=== PATIENT | female | born 1935 | race Caucasian/White ===

== ENCOUNTER 2018-12-11 07:56 | Emergency (ER) | payer OTHER ==
[~2018-12-11] VITALS: Ht 160 cm; Wt 83.5 kg
[2018-12-11] MEDS ORDERED: cloNIDine HCL 0.1 MG TAB ONE (08:09)
[2018-12-11] MEDS ORDERED: cloNIDine HCL 0.1 MG TAB PO ONE (08:15)
[2018-12-11 08:23] LABS: Basophils # (auto) 0 uL; Basophils % (auto) 0.5 % (0.0-2.0); Eosinophils # (auto) 0 uL; Eosinophils % (auto) 0.6 % (0.0-7.0); Hematocrit 43.9 % (36.0-46.0); Hemoglobin 14.7 g/dL (12.2-16.2); Lymphocytes # (auto) 1.3 uL; Lymphocytes % (auto) 18.3 % (10.0-50.0); Mean Corpuscular Hemoglobin 29.8 pg (28.0-32.0); Mean Corpuscular Hgb Conc. 33.4 g/dL (32.0-36.0); Mean Corpuscular Volume 89.3 fL (80.0-100.0); Monocytes # (auto) 0.5 uL; Monocytes % (auto) 6.6 % (0.0-12.0); Neutrophils # (auto) 5.4 uL; Platelet Count (auto) 193 10^3/uL (140-450); Red Blood Cells 4.91 10^6/uL (4.0-5.20); Red Cell Distribution Width 15.2 % (11.8-14.3); White Blood Cell 7.3 10^3/uL (4.4-10.8)
[2018-12-11 08:43] LABS: Anion Gap 7 (5-15); BUN/Creatinine Ratio 20.9; Blood Urea Nitrogen 14 mg/dL (7-18); Calcium 9.2 mg/dL (8.5-10.1); Carbon Dioxide 28 mmol/L (21-32); Chloride 104 mmol/L (98-107); GFR African American 109 mL/min; GFR Non-African American 90 mL/min; Glucose 99 mg/dL (74-106); Potassium 3.7 mmol/L (3.5-5.1); Sodium 139 mmol/L (136-145)
[2018-12-11 08:49] LABS: Alanine Aminotransferase 18 U/L (13-56); Alkaline Phosphatase 105 U/L (45-117); Aspartate Aminotransferase 15 U/L (15-37); Bilirubin, Total 0.6 mg/dL (0.2-1.0); Total Protein 7.3 g/dL (6.4-8.2)
[2018-12-11 10:13] LABS: Urine Bacteria MOD /hpf (None Seen); Urine Blood TRACE /uL (Negative); Urine Hyaline Cast FEW /lpf (0 - 2); Urine Mucus FEW (None Seen); Urine Specific Gravity 1.015 (1.001-1.035); Urine WBC 40 /hpf (0 - 5)
[2018-12-11 11:11] VITALS: BP 100/75
== END 2018-12-11 11:16 | disposition home or self-care (01) ==
LOC: ER 07:56
DX: I10 Essential (primary) hypertension (principal); N39.0 Urinary tract infection, site not specified; Z90.710 Acquired absence of both cervix and uterus
CPT/HCPCS: 36415; 80053; 81001; 83880; 84484; 85025; 93005

== ENCOUNTER 2024-03-30 17:32 | Inpatient (IN) | payer OTHER ==
[~2024-03-30] VITALS: Ht 154.9 cm; Wt 83.3 kg
[2024-03-30 18:20] LABS: Basophils # (auto) 0.1 10 ^3/uL (0-0.2); Basophils % (auto) 0.9 % (0.0-2.0); Eosinophils # (auto) 0.2 10 ^3/uL (0-0.8); Eosinophils % (auto) 1.4 % (0.0-7.0); Hematocrit 45.8 % (36.0-46.0); Hemoglobin 15.5 g/dL (12.2-16.2); Lymphocytes # (auto) 1.6 10 ^3/uL (0.4-5.4); Lymphocytes % (auto) 13.9 % (10.0-50.0); Mean Corpuscular Hemoglobin 28.4 pg (28.0-32.0); Mean Corpuscular Hgb Conc. 33.8 g/dL (32.0-36.0); Monocytes # (auto) 0.8 10 ^3/uL (0-1.3); Monocytes % (auto) 7.1 % (0.0-12.0); Neutrophils # (auto) 9.1 10 ^3/uL (1.6-8.6); Neutrophils % (auto) 76.7 % (37.0-80.0); Platelet Count (auto) 298 10^3/uL (140-450); Red Blood Cells 5.45 10^6/uL (4.0-5.20); Red Cell Distribution Width 15.7 % (11.8-14.3); White Blood Cell 11.8 10^3/uL (4.4-10.8)
[2024-03-30 18:34] LABS: Anion Gap 11 (5-15); Calcium 10.2 mg/dL (8.7-10.4)
[2024-03-30 18:39] LABS: BUN/Creatinine Ratio 19.6 (10.0-20.0); Blood Urea Nitrogen 18 mg/dL (9-23)
[2024-03-30 19:30] LABS: Carbon Dioxide 35 mmol/L (20-31); Chloride 90 mmol/L (98-107); Glucose 120 mg/dL (74-106); Sodium 136 mmol/L (136-145)
[2024-03-30 19:32] LABS: Potassium 2.4 mmol/L (3.5-5.1)
--- NOTE | 2024-03-30 20:40 | ED.PDOC ---
History of Present Illness HPI Comments 89 y.o female presents to the ED via EMS for an evaluation of abnormal labs. Patient reports recent lab drawn, states PCP called her to come into the ED due to potassium level measuring 2.3. Patient is asymptomatic at this time. Patient is also a poor historian, does not know her medical history, medications he takes or known allergies. She denies any nausea, vomiting, diarrhea, chest pain, shortness for breath or weakness. Chief Complaint: Abnormal LAB's Time Seen by MD: 20:18 Primary Care Provider: JESSIE Reviewed Notes: Nurses Notes, Health Education Assistant Notes, Medications, Allergies Allergies: Coded Allergies: NO KNOWN ALLERGIES (Unverified , 12/11/18) Information Source: Patient Mode of Arrival: EMS Severity: None Timing: Hours Duration: Since onset Past Medical History PAST MEDICAL HISTORY: HTN Surgical History: Hysterectomy, Tonsillectomy GENERAL SUPERVISOR History: No Pertinent GENERAL SUPERVISOR History Family History Family History: Family hx of heart bryon Social History Smoker: Non-Smoker Alcohol: Denies ETOH Use Drugs: Denies Drug Use Lives In: Home Constitutional: denies: chills, diaphoresis, fatigue, fever, malaise, sweats, weakness, others EENTM: denies: blurred vision, double vision, ear bleeding, ear discharge, ear drainage, ear pain, ear ringing, eye pain, eye redness, hearing loss, mouth pain, mouth swelling, nasal discharge, nose bleeding, nose congestion, nose pain, photophobia, tearing, throat pain, throat swelling, voice changes, others Respiratory: denies: cough, hemoptysis, orthopnea, SOB at rest, shortness of breath, SOB with excertion, stridor, wheezing, others Cardiovascular: denies: chest pain, dizzy spells, diaphoresis, Dyspnea on exertion, edema, irregular heart beat, left arm pain, lightheadedness, palpitations, PND, syncope, others Gastrointestinal: denies: abdomen distended, abdominal pain, blood streaked bowels, constipated, diarrhea, dysphagia, difficulty swallowing, hematemesis, melena, nausea, poor appetite, poor fluid intake, rectal bleeding, rectal pain, vomiting, others Genitourinary: denies: abnormal vagina bleeding, burning, dyspareunia, dysuria, flank pain, frequency, hematuria, incontinence, pain, , vagina discharge, urgency, others Neurological: denies: dizziness, fainting, headache, left sided numbness, left sided weakness, numbness, paresthesia, pre-existing deficit, right sided numbness, right sided weakness, seizure, speech problems, tingling, tremors, weakness, others Musculoskeletal: denies: back pain, gout, joint pain, joint swelling, muscle pain, muscle stiffness, neck pain, others Integumetry: denies: bruises, change in color, change in hair/nails, dryness, laceration, lesions, lumps, rash, wounds, others Allergic/Immunocompromised: denies: Difficulty Healing, Frequent Infections, Hives, Itching, others Hematologic/Lymphatic: denies: anemia, blood clots, easy bleeding, easy bruising, swollen glands, others Endocrine: denies: excessive hunger, excessive sweating, excessive thirst, excessive urination, flushing, intolerance to cold, intolerance to heat, unexplained weight gain, unexplained weight loss, others Psychiatric: denies: anxiety, bipolar disorder, depression, hopeless, panic disorder, schizophrenia, sleepless, suicidal, others All Other Systems: Reviewed and Negative Physical Exam General Appearance: No Apparent Distress HEENT: Other (Pulses symmetric, no facial asymmetry, moist mucous membranes) Neck: Full Range of Motion, Normal Inspection Respiratory: Lungs Clear, No Accessory Muscle Use, No Respiratory Distress, Normal Breath Sounds Cardiovascular: No Edema, No JVD, Regular Rate/Rhythm Breast Exam: Deferred Gastrointestinal: Non Tender, Soft Genitalia: Deferred Pelvic: Deferred Rectal: Deferred Extremities: Normal inspection, Normal range of motion, Non-tender, No pedal edema Neurologic: Alert (Oriented x3), Normal Affect, Normal Mood, Other (Moves all extremities. No gross focal deficit.) Cerebellar Function: NOT DONE Reflexes: NOT DONE Skin: Dry, Normal Color, Warm Lymphatic: NOT DONE Was a procedure done? Was a procedure done?: No EKG EKG : Comments Sinus rhythm, rate 80, normal intervals, left axis deviation, LVH, left anterior fascicular block, nonspecific T changes. Differential Dx Considerations may include: Electrolyte imbalance, renal disease, arrhythmia, among others X-Ray, Labs, Meds, VS Vital Signs Date Time Temp Pulse Resp B/P (MAP) Pulse Ox O2 Delivery O2 Flow Rate FiO2 03/30/24 17:40 80 03/30/24 17:32 97.9 90 24 121/77 (92) 95 Lab Test 03/30/24 21:11 03/30/24 19:22 03/30/24 18:09 Range/Units Troponin I High Sensitivity Pending 89 *H 86 *H </=34 ng/L White Blood Count 11.8 H 4.4-10.8 10^3/uL Red Blood Count 5.45 H 4.0-5.20 10^6/uL Hemoglobin 15.5 12.2-16.2 g/dL Hematocrit 45.8 36.0-46.0 % Mean Corpuscular Volume 84.0 80.0-100.0 fL Mean Corpuscular Hemoglobin 28.4 28.0-32.0 pg Mean Corpuscular Hemoglobin Concent 33.8 32.0-36.0 g/dL Red Cell Distribution Width 15.7 H 11.8-14.3 % Platelet Count 298 140-450 10^3/uL Mean Platelet Volume 8.4 6.9-10.8 fL Neutrophils (%) (Auto) 76.7 37.0-80.0 % Lymphocytes (%) (Auto) 13.9 10.0-50.0 % Monocytes (%) (Auto) 7.1 0.0-12.0 % Eosinophils (%) (Auto) 1.4 0.0-7.0 % Basophils (%) (Auto) 0.9 0.0-2.0 % Neutrophils # (Auto) 9.1 H 1.6-8.6 10 ^3/uL Lymphocytes # (Auto) 1.6 0.4-5.4 10 ^3/uL Monocytes # (Auto) 0.8 0-1.3 10 ^3/uL Eosinophils # (Auto) 0.2 0-0.8 10 ^3/uL Basophils # (Auto) 0.1 0-0.2 10 ^3/uL Nucleated Red Blood Cells 0.0 % Sodium Level 136 136-145 mmol/L Potassium Level 2.4 *L 3.5-5.1 mmol/L Chloride Level 90 L 98-107 mmol/L Carbon Dioxide Level 35 H 20-31 mmol/L Anion Gap 11 5-15 Blood Urea Nitrogen 18 9-23 mg/dL Creatinine 0.92 0.550-1.02 mg/dL Glomerular Filtration Rate Calc 60 >90 mL/min BUN/Creatinine Ratio 19.6 10.0-20.0 Serum Glucose 120 H 74-106 mg/dL Calcium Level 10.2 8.7-10.4 mg/dL [facility] [id number] [place] [address] Ph: [phone] DIAGNOSTIC IMAGING Diagnostic Imaging Report : [id number] Signed PATIENT: SARAY MARTÍNEZIAACCT: [id number] UNIT: [id number] : 1935 LOC: ER ROOM / BED: / AGE / SEX: 89 / F ADM STATUS: REG ER SERVICE 49 ORDERING PHYSICIAN: PALOMA COMBS MD PROCEDURE(s): CXR1 - CHEST XRAY 1 VIEW REASON: elevated troponin ORDER NUMBER(s): [id number], ACCESSION NUMBER(s): [id number] CHEST RADIOGRAPH Indication: elevated troponin Technique: Single frontal view of the chest was obtained COMPARISON: None FINDINGS: Lines and Tubes: None Lungs: Clear. Pleura: No effusion. No pneumothorax. Cardiomediastinal contours: Unremarkable IMPRESSION: No abnormality demonstrated. ATED BY: ERVIN ROSE MD DICTATED DATE/TIME: 03/30/242123 SIGNED BY: ERVIN ROSE MD SIGNED DATE/TIME: 03/30/242123 CC: X-Ray, Labs, Meds, VS Comment 89-year-old female with history of hypertension referred by primary physician for hypokalemia Vitals remarkable for respiratory rate 24 Exam unremarkable Rhythm strip independently interpreted by me: Sinus rhythm, rate 80, no ectopy. EKGs sinus rhythm, nonspecific T changes Chest x-ray unremarkable CBC remarkable for WBC 11.8, metabolic panel remarkable for potassium 2.4, chloride 90, CO2 is 35, glucose 120 Serial Troponins elevated at 86 and 89 Patient treated with the following in the ED: Aspirin 325 mg p.o., potassium effervescent 50 mEq p.o., K rider 20 mEq IV Case discussed with Dr. Mon at [facility], who will arrange for transfer to [facility]. Authorization [id number] Time of 1ST Reevaluation: 20:36 Reevaluation 1ST: Unchanged Patient Education/Counseling: Diagnosis, Treatment, Prognosis Family Education/Counseling: No Family Present Departure 1 Departure Time of Disposition: 20:58 Impression: Primary Impression: Hypokalemia Additional Impression: Elevated troponin Disposition: 02 SHORT TERM HOSPITAL Admit to: Tele Condition: Guarded Critical Care Note Critical Care Time?: No Stability Stability form required: No I personally scribed for PALOMA COMBS MD ([facility] on 03/30/24 at 20:40. Electronically submitted by China Gooden ([facility]). I personally scribed for PALOMA COMBS MD ([facility]) on 03/30/24 at 21:47. Electronically submitted by China Gooden ([facility]). PALOMA COMBS MD Mar 30, 2024 20:40
--- NOTE | 2024-03-30 21:09 | ECG ---
[facility] Test Date: 2024-03-30 Test Time: 17:40:39 Pat Name: LESVIA MARTÍNEZ Department: ER Room: 0286T Gender: F Esl Teacher: CHASITY : 1935 Requested By: PALOMA ARIZMENDI Order Number: [id number] Reading MD: Reynaldo Cali Measurements Intervals [place] Rate: 80 P: 30 WY: 185 QRS: -59 QRSD: 120 T: 114 QT: 374 QTc: 432 Interpretive Statements Sinus rhythm Left anterior fascicular block LVH with secondary repolarization abnormality Baseline wander in lead(s) V6 Electronically Signed On 04-02-2024 10:46:04 PST by Reynaldo Cali Please click the below link to view image of tracing.
--- NOTE | 2024-03-30 21:27 | DVH ---
CHEST RADIOGRAPH Indication: elevated troponin Technique: Single frontal view of the chest was obtained COMPARISON: None FINDINGS: Lines and Tubes: None Lungs: Clear. Pleura: No effusion. No pneumothorax. Cardiomediastinal contours: Unremarkable IMPRESSION: No abnormality demonstrated.
[2024-03-30] MEDS: ASPirin 325 MG TAB PO ONE (22:34)
[2024-03-30] MEDS: POTASSIUM EFFERVESENT TAB 25 MEQ PO ONE (22:34)
[2024-03-30] MEDS ORDERED: SODIUM CHLORIDE 0.9% 1,000 ML IV SCH (22:45)
[2024-03-30] MEDS ORDERED: ACETAMINOPHEN 325 MG TAB PO PRN (22:45)
--- NOTE | 2024-03-30 23:25 | DVHHPRES ---
History of Present Illness Resident Creating Document: VINH WESTBROOK History of Present Illness This is a 89-year-old female, which is a poor historian, with past medical history of hypertension, recurrent UTIs, urinary incontinence who presented to the ED referred by her [place] PCP Due to severe hypokalemia. I personally talk to Clemencia (patient care manager, ) caregiver, the patient went to see her PCP at [place] this morning and was referred to the ED by her PCP due to severe hypokalemia which was 2.3. Caregiver, she also reported that the patient has recurrent UTIs and recently noticed that the patient urine was cloudy/dark yellow and was having a strong smell. Upon admission, the patient denied chest pain, shortness of breath, fever/chills or any additional symptoms at this time. The patient is stable with no acute complaints. Initial labs showed a WBC of 11.8, potassium was 2.4 and troponins came back slightly elevated at 96. Initial EKG showed sinus rhythm with no ST segment elevation or depression, no T-wave abnormalities. We ordered oral and IV potassium, we will monitor potassium closely as well as other electrolytes. Initial chest x ray was grossly unremarkable and bilat lung martinez were grossly clear. Will admit the patient for further assessment and management. Cardiovascular: HTN Past Surgical History: None Family History: None Smoke: No ALCOHOL: none Drugs: None Lives: [facility] Review of Systems Constitutional: No: Fever, Chills, Sweats, Weakness, Malaise, Other Eyes: No: Pain, Vision change, Conjunctivae inflammation, Eyelid inflammation, Other, Redness ENT: No: Ear pain, Ear discharge, Nose pain, Nose discharge, Nose congestion, Mouth pain, Mouth swelling, Throat pain, Throat swelling, Other Respiratory: No: Cough, Dry, Shortness of breath, SOB with excertion, Wheezing, Hemoptysis, Pleuritic Pain, Sputum, Wheezing, Other Cardiovascular: No: Chest Pain, Palpitations, Orthopnea, Paroxysmal Noc. Dyspnea, Edema, Lt Headedness, Other Gastrointestinal: No: Nausea, Vomiting, Abdominal Pain, Diarrhea, Constipation, Melena, Hematochezia, Other Genitourinary: No Dysuria, No Frequency, No Incontinence, No Hematuria, No Retention, No Other Musculoskeletal: No: other, neck pain, shoulder pain, arm pain, back pain, hand pain, leg pain, foot pain Skin: No: Rash, Lesions, Jaundice, Bruising, Other Neurological: Change in speech (slow speech which is her baseline and difficult to understand); No: Weakness, Numbness, Incoordination, Confusion, Seizures, Other Allergies: Coded Allergies: NO KNOWN ALLERGIES (Unverified , 12/11/18) Exam Vital Signs Vital Signs Date Time Temp Pulse Resp B/P (MAP) Pulse Ox O2 Delivery O2 Flow Rate FiO2 03/30/24 22:30 94 16 92 Room Air 03/30/24 22:30 97.9 114/75 (88) 97.9 General Appearance: Alert, Oriented X3 (Patient does have a slow and slurred speech which according to her caregiver is chronic and is her baseline.), Cooperative, No acute distress HEENT: Atraumatic, PERRLA, EOMI, Mucous membr. moist/pink Respiratory: Clear to auscultation, Normal air movement Cardiovascular: Regular rate, Normal S1, Normal S2 Abdominal: Normal bowel sounds, Soft, No tenderness Extremities: No clubbing, No cyanosis, No edema, Normal pulses, No tenderness/swelling Skin: No rashes, No breakdown, No significant lesion Neuro: Normal gait, Normal speech, Strength at 5/5 X4 ext, Normal tone, Sensation intact, Cranial nerves 3-12 NL, Reflexes 2+ Psych/Mental Status: Other (She is a poor historian, slurred and slow speech difficult to comprehend but a according to her fever this is her baseline.) Labs/Xrays Labs Test 03/30/24 21:11 03/30/24 18:09 Range/Units Troponin I High Sensitivity 96 *H </=34 ng/L White Blood Count 11.8 H 4.4-10.8 10^3/uL Red Blood Count 5.45 H 4.0-5.20 10^6/uL Hemoglobin 15.5 12.2-16.2 g/dL Hematocrit 45.8 36.0-46.0 % Mean Corpuscular Volume 84.0 80.0-100.0 fL Mean Corpuscular Hemoglobin 28.4 28.0-32.0 pg Mean Corpuscular Hemoglobin Concent 33.8 32.0-36.0 g/dL Red Cell Distribution Width 15.7 H 11.8-14.3 % Platelet Count 298 140-450 10^3/uL Mean Platelet Volume 8.4 6.9-10.8 fL Neutrophils (%) (Auto) 76.7 37.0-80.0 % Lymphocytes (%) (Auto) 13.9 10.0-50.0 % Monocytes (%) (Auto) 7.1 0.0-12.0 % Eosinophils (%) (Auto) 1.4 0.0-7.0 % Basophils (%) (Auto) 0.9 0.0-2.0 % Neutrophils # (Auto) 9.1 H 1.6-8.6 10 ^3/uL Lymphocytes # (Auto) 1.6 0.4-5.4 10 ^3/uL Monocytes # (Auto) 0.8 0-1.3 10 ^3/uL Eosinophils # (Auto) 0.2 0-0.8 10 ^3/uL Basophils # (Auto) 0.1 0-0.2 10 ^3/uL Nucleated Red Blood Cells 0.0 % Sodium Level 136 136-145 mmol/L Potassium Level 2.4 *L 3.5-5.1 mmol/L Chloride Level 90 L 98-107 mmol/L Carbon Dioxide Level 35 H 20-31 mmol/L Anion Gap 11 5-15 Blood Urea Nitrogen 18 9-23 mg/dL Creatinine 0.92 0.550-1.02 mg/dL Glomerular Filtration Rate Calc 60 >90 mL/min BUN/Creatinine Ratio 19.6 10.0-20.0 Serum Glucose 120 H 74-106 mg/dL Calcium Level 10.2 8.7-10.4 mg/dL Assessment/Plan Assessment/Plan Assessment/Plan Acute metabolic/toxic encephalopathy, possibly due to UTI -Ordered ammonia -Ordered UA and UDS Severe hypokalemia -Initial potassium with her PCP at [place] was 2.3 -Remeasured potassium on admission 2.4 -Patient received 50mEq PO and 20 mEq IV -k 25 mEq PO additionally given -Will measure potassium once again -Will monitor electrolytes closely Suspected UTI -Awaiting UA -IV ceftriaxone NSTEMI likely type 2 -Trops were slightly elevated at 96 -trend trops -Patient denied chest pain -EKG showed sinus rhythm with no ST elevation/depression, No T waves abnormalities. -ASA 81mg daily Dyslipidemia -Ordered lipid panel, elevated triglycerides -Atorvastatin 20mg QD Urinary incontinence -Resume oxybutinin 5mg qd Poor historian, communicate with patient care manager Clemencia ([phone]) Goals of care discussed with the patient at bedside for >30min Plan discussed with Dr. Wagner Plan discussed with: Patient My Orders Orders - VINH WESTBROOK Procedure Category Date Status Time Admit ADMIT 03/30/24 Transmitted 22:42 Code Status CODE 03/30/24 Transmitted 22:42 Vital Signs EVIE 03/30/24 In Process 22:42 Review Orders With EVIE 03/30/24 In Process Adm.Md 22:42 Encourage Activity As EVIE 03/30/24 In Process Tolerate 22:42 Regular Diet DIET 03/31/24 Transmitted Breakfast Sodium Chloride 0.9% PHA 03/30/24 Transmitted 22:45 Acetaminophen Tablet PHA 03/30/24 Transmitted (Tylenol Tablet) 22:45 Notify Md Of Changes EVIE 03/30/24 In Process From Base 22:42 Advance Directive EVIE 03/30/24 In Process 22:42 Urinalysis LAB 03/30/24 Logged 22:42 Lipid Panel LAB 03/30/24 Logged 22:42 Urine Bacterial NAEEM 03/30/24 Logged Culture 22:42 Patient Condition ORDERS 03/30/24 Transmitted 22:42 Allergies EVIE 03/30/24 In Process 22:42 Drug Screen LAB 03/30/24 Logged 22:42 Hemoglobin A1c LAB 03/30/24 Logged 22:42 Lovenox 40mg PHA 03/31/24 Transmitted 10:00 Date of Service: Mar 30, 2024 Billing Provider: JONATHAN WAGNER MD Common Visit Codes: [id number] INP/OBS CARE (HIGH) VINH WESTBROOK RESIDENT Mar 30, 2024 23:25 JONATHAN WAGNER MD Apr 01, 2024 01:22
[2024-03-30 23:29] LABS: HDL Cholesterol 45 mg/dL (40-59)
[2024-03-30 23:30] LABS: Cholesterol 188 mg/dL (< 200)
[2024-03-30 23:37] LABS: LDL Cholesterol 114 mg/dL (< 100); Triglycerides 193 mg/dL (< 150)
[2024-03-31] MEDS: POTASSIUM EFFERVESENT TAB 25 MEQ PO ONE ×2 (00:42→00:43)
[2024-03-31] MEDS: POTASSIUM CHL 20MEQ/100ML 100 ML IV ONE (01:00)
[2024-03-31 01:03] VITALS: PULSE 75; RESP 15; O2SAT 96
[2024-03-31] MEDS: SOD CHL 0.9%/ KCL 40MEQ 1,000 ML IV SCH (02:54)
[2024-03-31 07:22] VITALS: O2SAT 9
[2024-03-31 07:29] LABS: Basophils # (auto) 0.1 10 ^3/uL (0-0.2); Basophils % (auto) 0.6 % (0.0-2.0); Eosinophils # (auto) 0.2 10 ^3/uL (0-0.8); Eosinophils % (auto) 2.1 % (0.0-7.0); Hematocrit 38.5 % (36.0-46.0); Hemoglobin 13.4 g/dL (12.2-16.2); Lymphocytes # (auto) 1.9 10 ^3/uL (0.4-5.4); Lymphocytes % (auto) 19.4 % (10.0-50.0); Mean Corpuscular Hemoglobin 29.1 pg (28.0-32.0); Mean Corpuscular Hgb Conc. 34.8 g/dL (32.0-36.0); Mean Corpuscular Volume 83.7 fL (80.0-100.0); Monocytes # (auto) 0.7 10 ^3/uL (0-1.3); Monocytes % (auto) 7.5 % (0.0-12.0); Neutrophils # (auto) 6.8 10 ^3/uL (1.6-8.6); Neutrophils % (auto) 70.4 % (37.0-80.0); Platelet Count (auto) 233 10^3/uL (140-450); Red Cell Distribution Width 15.2 % (11.8-14.3); White Blood Cell 9.6 10^3/uL (4.4-10.8)
[2024-03-31 07:33] LABS: Alanine Aminotransferase 18 U/L (7-40); Albumin 4.5 g/dL (3.2-4.8); Anion Gap 8 (5-15); Aspartate Aminotransferase 31 U/L (13-40); BUN/Creatinine Ratio 33.3 (10.0-20.0); Bilirubin, Total 0.8 mg/dL (0.2-1.0); Calcium 9.4 mg/dL (8.7-10.4); Sodium 138 mmol/L (136-145); Total Protein 6.4 g/dL (5.7-8.2)
[2024-03-31 07:47] LABS: Alkaline Phosphatase 127 U/L (46-116); Blood Urea Nitrogen 24 mg/dL (9-23); Carbon Dioxide 33 mmol/L (20-31); Chloride 97 mmol/L (98-107); Glucose 115 mg/dL (74-106); Potassium 3.2 mmol/L (3.5-5.1)
[2024-03-31] MEDS ORDERED: ENOXAPARIN SOD 40 MG/0.4 ML SYRINGE SC SCH (10:00)
--- NOTE | 2024-03-31 11:47 | DVHPN2 ---
Progress Note Date Seen: Mar 31, 2024 Medical Necessity Reason Pt with a Central, PICC or Fol: No Subjective Patient reports: No new complaints Review of Systems: HEENT:Normal, CVS:Normal, RESPIRATORY:Normal, GI:Normal, :Normal, MSK:Normal, NEURO:Normal Objective vital signs Vital Sign Date Time Temp Pulse Resp B/P (MAP) Pulse Ox O2 Delivery O2 Flow Rate FiO2 03/31/24 07:22 9 Room Air* 0 21 03/31/24 07:21 97.8 76 17 114/74 (87) 97.8 Total Intake and Output 03/30/24 03/30/24 03/31/24 15:00 23:00 07:00 Intake Total 100 ml Balance 100 ml medications Current Medications Medications Dose Ordered Sig/Desire Route Start Time Stop Time Status Last Admin Dose Admin Acetaminophen 650 mg Q6HP PRN PO 03/30/24 22:45 Aspirin 81 mg DAILY PO 03/31/24 10:00 Oxybutynin Chloride 5 mg DAILY PO 03/31/24 10:00 Atorvastatin Calcium 20 mg HS PO 03/31/24 22:00 Ceftriaxone Sodium 50 ml @ 100 mls/hr DAILY@09 IV 03/31/24 09:00 Examination: GENERAL:Normal, HEENT:Normal, NECK:Normal, LUNGS:Normal, CVS:Normal, ABDOMEN:Normal, MSK:Normal, SKIN:Normal, NEURO:Normal, :Normal laboratory and microbiology Laboratory Tests 03/31/24 06:34 Test 03/31/24 06:34 Range/Units Serum Glucose 115 H 74-106 mg/dL Problem List/Assessment/Plan Problem List/Assessment/Plan #1 severe hypokalemia: replace #2 htn #3 obesity #4 ?uti: check ua advance care planning- full code- time spent 19 mins Plan discussed with: Patient My Orders My Orders Orders - MARGARETH RODRIGUEZ MD Procedure Category Date Status Time Urinalysis LAB 03/31/24 Uncollected 11:40 Potassium Er Tablet PHA 03/31/24 Logged (Klor-Con Tablet) 11:45 Basic Metabolic Panel LAB 04/01/24 Verified 06:00 Magnesium LAB 04/01/24 Verified 05:00 Date of Service: Mar 31, 2024 Billing Provider: MARGARETH RODRIGUEZ MD Common Visit Codes: [id number] INP/OBS CARE(HIGH) Secondary Visit Codes: [id number] CARE PLAN 30 MINUTES MARGARETH RODRIGUEZ MD Mar 31, 2024 11:47
[2024-03-31] MEDS: ASPirin 81 mg TAB PO SCH (14:35)
[2024-03-31] MEDS: OXYBUTYNIN CHL 5 MG TAB PO SCH (14:35)
[2024-03-31] MEDS: cefTRIAXone 1GM/50ML D5W 50 ML IV SCH (14:36)
[2024-03-31] MEDS: POTASSIUM CHL 20 Meq TABLET PO ONE (14:36)
[2024-03-31] MEDS: ATORVASTATIN 20 MG TAB PO SCH (22:00)
[2024-03-31 22:47] VITALS: BP 137/72; PULSE 64; RESP 19; TEMP 98.6; O2SAT 98
[2024-04-01] VITALS (8 sets, daily range): BP systolic 95–119; BP diastolic 36–62; PULSE 50–68; RESP 15–19; TEMP 97.5–98.6; O2SAT 90–100
[2024-04-01] MEDS ORDERED: HYDR50TA47 PO (06:29)
[2024-04-01] MEDS ORDERED: OXYB5TAB14 PO (06:29)
[2024-04-01] MEDS ORDERED: HYDR25TA4 PO (06:29)
[2024-04-01] MEDS ORDERED: FURO40TA4 PO (06:29)
[2024-04-01] MEDS ORDERED: ATOR40TA52 PO (06:29)
[2024-04-01] MEDS ORDERED: CEPH250C PO (06:29)
[2024-04-01 08:59] LABS: Anion Gap 7 (5-15); Chloride 103 mmol/L (98-107); Sodium 142 mmol/L (136-145)
[2024-04-01 09:00] LABS: Calcium 9.4 mg/dL (8.7-10.4)
[2024-04-01 09:01] LABS: Carbon Dioxide 32 mmol/L (20-31); Potassium 3.2 mmol/L (3.5-5.1)
[2024-04-01 09:05] LABS: BUN/Creatinine Ratio 30.4 (10.0-20.0); Blood Urea Nitrogen 21 mg/dL (9-23); Glucose 104 mg/dL (74-106)
[2024-04-01 09:06] LABS: Magnesium 1.7 mg/dL (1.6-2.6)
--- NOTE | 2024-04-01 11:54 | DVHDS2 ---
Discharge Summary Date of Admission Mar 30, 2024 at 22:42 Date of Discharge: Apr 01, 2024 Labs/Diagnostic Data: Laboratory Results Test 04/01/24 08:06 03/31/24 06:34 03/30/24 23:39 03/30/24 21:11 Sodium Level 142 mmol/L (136-145) Potassium Level 3.2 mmol/L (3.5-5.1) Chloride Level 103 mmol/L (98-107) Carbon Dioxide Level 32 mmol/L (20-31) Anion Gap 7 (5-15) Blood Urea Nitrogen 21 mg/dL (9-23) Creatinine 0.69 mg/dL (0.550-1.02) Glomerular Filtration Rate Calc 84 mL/min (>90) BUN/Creatinine Ratio 30.4 (10.0-20.0) Serum Glucose 104 mg/dL (74-106) Calcium Level 9.4 mg/dL (8.7-10.4) Magnesium Level 1.7 mg/dL (1.6-2.6) White Blood Count 9.6 10^3/uL (4.4-10.8) Red Blood Count 4.60 10^6/uL (4.0-5.20) Hemoglobin 13.4 g/dL (12.2-16.2) Hematocrit 38.5 % (36.0-46.0) Mean Corpuscular Volume 83.7 fL (80.0-100.0) Mean Corpuscular Hemoglobin 29.1 pg (28.0-32.0) Mean Corpuscular Hemoglobin Concent 34.8 g/dL (32.0-36.0) Red Cell Distribution Width 15.2 % (11.8-14.3) Platelet Count 233 10^3/uL (140-450) Mean Platelet Volume 8.7 fL (6.9-10.8) Neutrophils (%) (Auto) 70.4 % (37.0-80.0) Lymphocytes (%) (Auto) 19.4 % (10.0-50.0) Monocytes (%) (Auto) 7.5 % (0.0-12.0) Eosinophils (%) (Auto) 2.1 % (0.0-7.0) Basophils (%) (Auto) 0.6 % (0.0-2.0) Neutrophils # (Auto) 6.8 10 ^3/uL (1.6-8.6) Lymphocytes # (Auto) 1.9 10 ^3/uL (0.4-5.4) Monocytes # (Auto) 0.7 10 ^3/uL (0-1.3) Eosinophils # (Auto) 0.2 10 ^3/uL (0-0.8) Basophils # (Auto) 0.1 10 ^3/uL (0-0.2) Nucleated Red Blood Cells 0.0 % Total Bilirubin 0.8 mg/dL (0.2-1.0) Aspartate Amino Transferase (AST) 31 U/L (13-40) Alanine Aminotransferase (ALT) 18 U/L (7-40) Alkaline Phosphatase 127 U/L (46-116) Total Protein 6.4 g/dL (5.7-8.2) Albumin 4.5 g/dL (3.2-4.8) Ammonia < 10 umol/L (11-32) Troponin I High Sensitivity 96 ng/L (</=34) Triglycerides Level 193 mg/dL (< 150) Cholesterol Level 188 mg/dL (< 200) LDL Cholesterol 114 mg/dL (< 100) HDL Cholesterol 45 mg/dL (40-59) Test 03/30/24 18:09 Hemoglobin A1c 5.8 % A1C (<5.7) Other Laboratory Tests 04/01/24 08:06 03/31/24 06:34 Brief Hx & Hospital Course: see dictated note Condition at Discharge: Fair Final Diagnosis/Problems List aloc Discharge Disposition: Acute Care Facility Discharge Instruct/Medications Diet: Regular Activity: No Restrictions, As Tolerated Follow Up/Referral: fu with [place] Medications: per apr Discharge Statement: "Patient was advised to return to the ER or call 911 if any headaches, dizziness, shortness of breath, chest pain, abdominal pain, bleeding, fevers, or worsening of medical condition. Patient was counseled about treatment plan, medications, possible side effects, patientverbalized understanding. All questions were answered to the best of my ability. This discharge took greater then 30 minutes in planning, reviewing documentation, counseling the patient, and discussing with other team members." ASSESSMENT ASSESSMENT Assessment aloc Date of Service: Apr 01, 2024 Billing Provider: MARGARETH RODRIGUEZ MD Common Visit Codes: 86479-SLZ/OBS DISCH DAY >30min MARGARETH RODRIGUEZ MD Apr 01, 2024 11:54
--- NOTE | 2024-04-01 12:01 | DVHDS ---
DATE OF DISCHARGE: 04/01/2024 DATE OF TRANSFER: 04/01/2024 HISTORY OF PRESENT ILLNESS: The patient is an 89-year-old lady who was admitted after she was sent from [place] for severe hypokalemia with a potassium of 2.3. The patient has history of hypertension, recurrent UTIs and urinary incontinence. HOSPITAL COURSE: The patient had initial potassium of 2.4. Troponin levels were mildly elevated up to 96. The patient's potassium has improved to 3.2. The patient had a chest x-ray that showed no acute abnormality. The patient at this time remains confused. The patient will now be transferred to [place] for further management. FINAL DIAGNOSES: Therefore, * Severe hypokalemia. * Hypertension. * Obesity. * Questionable urinary tract infection. * Encephalopathy, questionable metabolic. Time spent in discharge planning and review of plan with the patient and nursing and paperwork was 39 minutes. MD LONNIE Tucker/KEVIN TID: [id number] RECEIPT: [id number]
--- NOTE | 2024-04-01 12:34 | DVH ---
EXAM: CT HEAD WITHOUT CONTRAST HISTORY: aloc COMPARISON: [Comparison] TECHNIQUE: Axial images of the head were obtained and reformatted in coronal and sagittal planes. All CT scans at this medical facility are performed using dose modulation techniques as appropriate t o a performed exam including the following: Automated exposure control was utilized; adjustment of th e MA and/or KV according to patient size; and use of iterative reconstruction technique. CT Dose: CTDI volume is 59.28 mGy. Dose-length product is 1049.56 mGy*cm FINDINGS: There is age concordant parenchymal volume loss. There are patchy chronic small-vessel ischemic granda ges in the supratentorial white matter. There is no evidence of acute intracranial hemorrhage, mass, mass effect midline shift. There is no hydrocephalus or extra-axial fluid collection. There are tiny hypodense foci in the bilateral basal ganglia likely representing chronic lacunar infarcts. The visualized paranasal sinuses and mastoid air cells are clear. The calvarium is intact. IMPRESSION: 1. No acute intracranial process. HS:Y
[2024-04-01] MEDS: POTASSIUM CHL 20 Meq TABLET PO ONE (12:44)
[2024-04-01 17:07] LABS: Urine Bacteria None Seen /hpf (None Seen)
[2024-04-01 17:32] LABS: Urine Blood Negative /uL (Negative); Urine Clarity Clear (Clear); Urine Color Yellow (Yellow); Urine Mucus FEW (None Seen); Urine Protein, UAD Negative (Negative); Urine Specific Gravity 1.021 (1.001-1.035); Urine Squamous Epithelial Cell FEW /hpf (<5); Urine Urobilinogen Normal (Negative); Urine WBC 12 /HPF (0-5)
[2024-04-01 17:49] LABS: Amphetamine Screen, Urine Neg (NEGATIVE); Barbiturate Scree,Urine Neg (NEGATIVE); Benzodiazephine Screen, Urine Neg (NEGATIVE); Cannabinoid Screen, Urine Neg (NEGATIVE); Cocaine Screen, Urine Neg (NEGATIVE); Opiate Scree,Urine Neg (NEGATIVE); Phencyclidine Screen, Urine Neg (NEGATIVE)
[2024-04-02] VITALS (7 sets, daily range): BP systolic 93–108; BP diastolic 43–58; PULSE 47–67; RESP 16–19; TEMP 97.4–98.4; O2SAT 94–98
[2024-04-02 07:11] LABS: Basophils # (auto) 0.1 10 ^3/uL (0-0.2); Basophils % (auto) 0.8 % (0.0-2.0); Eosinophils # (auto) 0.3 10 ^3/uL (0-0.8); Eosinophils % (auto) 3.7 % (0.0-7.0); Hematocrit 32.9 % (36.0-46.0); Hemoglobin 11.2 g/dL (12.2-16.2); Lymphocytes # (auto) 1.9 10 ^3/uL (0.4-5.4); Lymphocytes % (auto) 26.5 % (10.0-50.0); Mean Corpuscular Hemoglobin 28.6 pg (28.0-32.0); Mean Corpuscular Hgb Conc. 33.9 g/dL (32.0-36.0); Mean Corpuscular Volume 84.4 fL (80.0-100.0); Monocytes # (auto) 0.5 10 ^3/uL (0-1.3); Monocytes % (auto) 6.8 % (0.0-12.0); Neutrophils # (auto) 4.4 10 ^3/uL (1.6-8.6); Neutrophils % (auto) 62.2 % (37.0-80.0); Platelet Count (auto) 174 10^3/uL (140-450); Red Cell Distribution Width 15.5 % (11.8-14.3); White Blood Cell 7.1 10^3/uL (4.4-10.8)
[2024-04-02 07:22] LABS: Anion Gap 8 (5-15); Calcium 9.2 mg/dL (8.7-10.4); Carbon Dioxide 30 mmol/L (20-31); Chloride 104 mmol/L (98-107); Sodium 142 mmol/L (136-145)
[2024-04-02 07:28] LABS: BUN/Creatinine Ratio 32.1 (10.0-20.0); Blood Urea Nitrogen 18 mg/dL (9-23); Glucose 91 mg/dL (74-106)
[2024-04-02 07:29] LABS: Potassium 3.2 mmol/L (3.5-5.1)
--- NOTE | 2024-04-02 15:04 | DVHPN2 ---
Progress Note Date Seen: Apr 02, 2024 Medical Necessity Reason Pt with a Central, PICC or Fol: No Subjective Patient reports: No new complaints Review of Systems: HEENT:Normal, CVS:Normal, RESPIRATORY:Normal, GI:Normal, :Normal, MSK:Normal, NEURO:Normal Objective vital signs Vital Sign Date Time Temp Pulse Resp B/P (MAP) Pulse Ox O2 Delivery O2 Flow Rate FiO2 04/02/24 09:02 97.4 53 19 103/58 (73) 98 97.4 04/02/24 08:00 Nasal Cannula* 3 32 Total Intake and Output 04/01/24 04/01/24 04/02/24 15:00 23:00 07:00 Intake Total 910 ml 300 ml Output Total 450 ml Balance 910 ml -150 ml medications Current Medications Medications Dose Ordered Sig/Desire Route Start Time Stop Time Status Last Admin Dose Admin Acetaminophen 650 mg Q6HP PRN PO 03/30/24 22:45 Aspirin 81 mg DAILY PO 03/31/24 10:00 04/02/24 09:12 81 MG Oxybutynin Chloride 5 mg DAILY PO 03/31/24 10:00 04/02/24 09:12 5 MG Atorvastatin Calcium 20 mg HS PO 03/31/24 22:00 04/01/24 21:47 20 MG Ceftriaxone Sodium 50 ml @ 100 mls/hr DAILY@09 IV 03/31/24 09:00 04/02/24 09:09 100 MLS/HR Examination: GENERAL:Normal, HEENT:Normal, NECK:Normal, LUNGS:Normal, LUNGS:Abnormal (on oxygen), CVS:Normal, ABDOMEN:Normal, MSK:Normal, SKIN:Normal, NEURO:Normal, :Normal laboratory and microbiology Laboratory Tests 04/02/24 05:25 Test 04/02/24 05:25 Range/Units Serum Glucose 91 74-106 mg/dL Microbiology Date/Time Source Procedure Growth Status 04/01/24 15:58 Urine - [place] Urine Culture - Preliminary Resulted Problem List/Assessment/Plan Problem List/Assessment/Plan #1 severe hypokalemia: replace #2 htn #3 obesity #4 ?uti/ sepsis: check ua #5 encephalopathy ? metabolic: improving #6 acute resp failure advance care planning- full code- time spent 19 mins Plan discussed with: Patient Date of Service: Apr 02, 2024 Billing Provider: MARGARETH RODRIGUEZ MD Common Visit Codes: [id number] INP/OBS CARE(HIGH) Secondary Visit Codes: [id number] CARE PLAN 30 MINUTES MARGARETH RODRIGUEZ MD Apr 02, 2024 15:04
[2024-04-02] MEDS: MAGNESIUM SULFATE 1GM/100ML 100 ML IV SCH (16:21)
[2024-04-02] MEDS: POTASSIUM CHLORIDE 40 MEQ, LIDOCAINE 1% (LOCAL ANESTH.) 4 ML in SODIUM CHL 0.9% 250 ML IV ONE (20:35)
[2024-04-03] VITALS (9 sets, daily range): BP systolic 97–123; BP diastolic 38–63; PULSE 51–62; RESP 17–20; TEMP 97.4–98.8; O2SAT 93–100
[2024-04-03 06:54] LABS: Chloride 103 mmol/L (98-107); Potassium 3.9 mmol/L (3.5-5.1); Sodium 140 mmol/L (136-145)
[2024-04-03 06:55] LABS: Anion Gap 6 (5-15); Calcium 9.4 mg/dL (8.7-10.4)
[2024-04-03 07:00] LABS: Glucose 91 mg/dL (74-106)
[2024-04-03 07:01] LABS: Carbon Dioxide 31 mmol/L (20-31); Magnesium 2.1 mg/dL (1.6-2.6)
[2024-04-03 07:23] LABS: BUN/Creatinine Ratio 28.6 (10.0-20.0); Blood Urea Nitrogen 16 mg/dL (9-23)
--- NOTE | 2024-04-03 11:52 | ECG ---
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
--- NOTE | 2024-04-03 13:25 | DVHSR ---
APPROVED REPORT EXAM: Two-dimensional and M-mode echocardiogram with Doppler and color Doppler. Blood Pressure: 93/50 mmHg INDICATION transfer request from [facility] Obesity: Height: 5'1, Weight: 177 DIMENSIONS LVDd4.9 (3.8-5.7cm)LA (2D)4.7 (1.9-4.0cm)Aortic Root3.2 (2.0-3.7cm) LVDs3.3 (2.5-4.0cm)LA (MM) (1.9-4.0cm)Aortic Cusp Exc0.6 (1.5-2.0cm) EF (%) 60.0 (55-70%)Rt. Atrium (1.9-4.0cm)Asc. Aorta3.8 cm IVSd1.3 (0.7-1.1cm)RV (D)4.1 (1.8-2.4cm) PWd1.0 (0.7-1.1cm) Mitral Valve MitralMitral Stenosis E wave1.32m/sMV Mean GR.3mmHg A wave1.41m/sMV Peak GR.78mmHg E/A ratio0.92D MVAcm2 DECEL [id number] 1/2 Timems Aortic Valve Aortic ValveAortic Stenosis V11.17m/Aiden Mean GR.15mmHg V22.41m/Aiden Peak GR.23mmHg LVOT Diameter2.2 (1.8-2.4cm)Doppler AVA1.84cm2 Pulmonic Valve V21.22m/s Tricuspid Valve TR Velocity2.39m/s [id number] Other Information Quality : Technically LimitedRhythm : Technically limited study due to pt confused, moving Conclusion lvef 55% moderate LVH severe MAC moderate Aortic stenosis mild mitral regurg mild mitral stenosis
[2024-04-04] VITALS (8 sets, daily range): BP systolic 102–127; BP diastolic 44–68; PULSE 54–97; RESP 16–18; TEMP 97.4–98.5; O2SAT 91–99
--- NOTE | 2024-04-04 13:45 | DVHPN2 ---
Reviewed: Care Plan Changes from previous H/P or p: No Changes General: Per HPI Eyes: No Pain, No Vision change, No Conjunctivae inflammation, No Eyelid inflammation, No Other, No Redness ENT: No Ear pain, No Ear discharge, No Nose pain, No Nose discharge, No Nose congestion, No Mouth pain, No Mouth swelling, No Throat pain, No Throat swelling, No Other Cardiovascular: No Chest Pain, No Palpitations, No Orthopnea, No Paroxysmal Noc. Dyspnea, No Edema, No Lt Headedness, No Other Respiratory: No Cough, No Dry, No Shortness of breath, No SOB with excertion, No Wheezing, No Hemoptysis, No Pleuritic Pain, No Sputum, No Other Gastrointestinal: No Nausea, No Vomiting, No Abdominal Pain, No Diarrhea, No Constipation, No Melena, No Hematochezia, No Other Genitourinary: No Dysuria, No Frequency, No Incontinence, No Hematuria, No Retention, No Other Musculoskeletal: No other, No neck pain, No shoulder pain, No arm pain, No back pain, No hand pain, No leg pain, No foot pain Skin: No Rash, No Lesions, No Jaundice, No Bruising, No Other Objective Vitals Vital Signs Date Time Temp Pulse Resp B/P (MAP) Pulse Ox O2 Delivery O2 Flow Rate FiO2 04/04/24 09:00 97.7 69 16 111/64 (80) 99 97.7 04/04/24 08:28 Nasal Cannula* 3 32 Intake/Output Intake and Output 04/04/24 07:00 Intake Total 1275 ml Output Total 1600 ml Balance -325 ml Intake Oral 1275 ml Output Urine Total 1600 ml # Bowel Movements 5 General Appearance: Alert, Cooperative HEENT: Atraumatic Cardiovascular: Regular rate, Normal S1, Normal S2 Abdomen: Normal bowel sounds, Soft Medications Current Medications Medications Dose Ordered Sig/Desire Route Start Time Stop Time Status Last Admin Dose Admin Acetaminophen 650 mg Q6HP PRN PO 03/30/24 22:45 Aspirin 81 mg DAILY PO 03/31/24 10:00 04/04/24 09:16 81 MG Oxybutynin Chloride 5 mg DAILY PO 03/31/24 10:00 04/04/24 09:15 5 MG Atorvastatin Calcium 20 mg HS PO 03/31/24 22:00 04/03/24 21:14 20 MG Ceftriaxone Sodium 50 ml @ 100 mls/hr DAILY@09 IV 03/31/24 09:00 04/04/24 09:15 100 MLS/HR Laboratory Results Laboratory Tests 04/02/24 05:25 04/03/24 04:52 Urinalysis Test 04/01/24 15:58 Urine Color Yellow (Yellow) Urine Clarity Clear (Clear) Urine pH 6.0 (5.0-9.0) Urine Specific [place] 1.021 (1.001-1.035) Urine Protein Negative (Negative) Urine Ketones Negative (Negative) Urine Blood Negative /uL (Negative) Urine Nitrite Negative (Negative) Urine Bilirubin Negative (Negative) Urine Urobilinogen Normal mg/dL (Negative) Urine Leukocyte Esterase 1+ /uL (Negative) Urine RBC 2 /hpf (0 - 4) Urine Microscopic WBC 12 /HPF (0-5) H Urine Squamous Epithelial Cells Few /hpf (<5) Urine Bacteria None seen /hpf (None Seen) Urine Mucus Few (None Seen) Urine Glucose Normal mg/dL (Normal) Microbiology Microbiology Date/Time Source Procedure Growth Status 04/01/24 15:58 Urine - [place] Urine Culture - Final Complete Labs and/or images reviewed: Labs reviewed by me, Image(s) reviewed by me Assessment/Plan Assessment/Plan #1 severe hypokalemia: replace #2 htn #3 obesity #4 ?uti/ sepsis: check ua #5 encephalopathy ? metabolic: improving #6 acute resp failure advance care planning- full code- time spent 19 mins Plan discussed with: Other (nursing staff) Date of Service: Apr 03, 2024 Billing Provider: RAMOS VILLANUEVA DO Common Visit Codes: [id number] INP/OBS CARE(HIGH) RAMOS VILLANUEVA DO Apr 04, 2024 13:45
--- NOTE | 2024-04-04 19:04 | DVHPN2 ---
Reviewed: Care Plan, H&P, Labs, Medications, Previous Orders, Radiology Changes from previous H/P or p: No Changes General: Per HPI Eyes: No Pain, No Vision change, No Conjunctivae inflammation, No Eyelid inflammation, No Other, No Redness ENT: No Ear pain, No Ear discharge, No Nose pain, No Nose discharge, No Nose congestion, No Mouth pain, No Mouth swelling, No Throat pain, No Throat swelling, No Other Cardiovascular: No Chest Pain, No Palpitations, No Orthopnea, No Paroxysmal Noc. Dyspnea, No Edema, No Lt Headedness, No Other Respiratory: No Cough, No Dry, No Shortness of breath, No SOB with excertion, No Wheezing, No Hemoptysis, No Pleuritic Pain, No Sputum, No Other Gastrointestinal: No Nausea, No Vomiting, No Abdominal Pain, No Diarrhea, No Constipation, No Melena, No Hematochezia, No Other Genitourinary: No Dysuria, No Frequency, No Incontinence, No Hematuria, No Retention, No Other Musculoskeletal: No other, No neck pain, No shoulder pain, No arm pain, No back pain, No hand pain, No leg pain, No foot pain Skin: No Rash, No Lesions, No Jaundice, No Bruising, No Other Objective Vitals Vital Signs Date Time Temp Pulse Resp B/P (MAP) Pulse Ox O2 Delivery O2 Flow Rate FiO2 04/04/24 16:48 98.3 97 18 111/68 (82) 96 98.3 04/04/24 08:28 Nasal Cannula* 3 32 Intake/Output Intake and Output 04/04/24 07:00 Intake Total 1275 ml Output Total 1600 ml Balance -325 ml Intake Oral 1275 ml Output Urine Total 1600 ml # Bowel Movements 5 General Appearance: Alert, Cooperative HEENT: Atraumatic Cardiovascular: Regular rate, Normal S1, Normal S2 Abdomen: Normal bowel sounds, Soft Medications Current Medications Medications Dose Ordered Sig/Desire Route Start Time Stop Time Status Last Admin Dose Admin Acetaminophen 650 mg Q6HP PRN PO 03/30/24 22:45 Aspirin 81 mg DAILY PO 03/31/24 10:00 04/04/24 09:16 81 MG Oxybutynin Chloride 5 mg DAILY PO 03/31/24 10:00 04/04/24 09:15 5 MG Atorvastatin Calcium 20 mg HS PO 03/31/24 22:00 04/03/24 21:14 20 MG Ceftriaxone Sodium 50 ml @ 100 mls/hr DAILY@09 IV 03/31/24 09:00 04/04/24 09:15 100 MLS/HR Laboratory Results Laboratory Tests 04/02/24 05:25 04/03/24 04:52 Urinalysis Test 04/01/24 15:58 Urine Color Yellow (Yellow) Urine Clarity Clear (Clear) Urine pH 6.0 (5.0-9.0) Urine Specific [place] 1.021 (1.001-1.035) Urine Protein Negative (Negative) Urine Ketones Negative (Negative) Urine Blood Negative /uL (Negative) Urine Nitrite Negative (Negative) Urine Bilirubin Negative (Negative) Urine Urobilinogen Normal mg/dL (Negative) Urine Leukocyte Esterase 1+ /uL (Negative) Urine RBC 2 /hpf (0 - 4) Urine Microscopic WBC 12 /HPF (0-5) H Urine Squamous Epithelial Cells Few /hpf (<5) Urine Bacteria None seen /hpf (None Seen) Urine Mucus Few (None Seen) Urine Glucose Normal mg/dL (Normal) Microbiology Microbiology Date/Time Source Procedure Growth Status 04/01/24 15:58 Urine - [place] Urine Culture - Final Complete Assessment/Plan Assessment/Plan #1 severe hypokalemia: replace #2 htn #3 obesity #4 ?uti/ sepsis: check ua #5 encephalopathy ? metabolic: improving #6 acute resp failure advance care planning- full code- time spent 19 mins 04/04/2024 continue with iv abx for tx of bacteremia repeat blood culture obtained Plan discussed with: Patient Date of Service: Apr 04, 2024 Billing Provider: RAMOS VILLANUEVA DO Common Visit Codes: [id number] INP/OBS CARE(HIGH) RAMOS VILLANUEVA DO Apr 04, 2024 19:04
--- NOTE | 2024-04-04 19:06 | DVHPN2 ---
Reviewed: Care Plan, H&P, Labs, Medications, Previous Orders, Radiology Changes from previous H/P or p: No Changes General: Per HPI Eyes: No Pain, No Vision change, No Conjunctivae inflammation, No Eyelid inflammation, No Other, No Redness ENT: No Ear pain, No Ear discharge, No Nose pain, No Nose discharge, No Nose congestion, No Mouth pain, No Mouth swelling, No Throat pain, No Throat swelling, No Other Cardiovascular: No Chest Pain, No Palpitations, No Orthopnea, No Paroxysmal Noc. Dyspnea, No Edema, No Lt Headedness, No Other Respiratory: No Cough, No Dry, No Shortness of breath, No SOB with excertion, No Wheezing, No Hemoptysis, No Pleuritic Pain, No Sputum, No Other Gastrointestinal: No Nausea, No Vomiting, No Abdominal Pain, No Diarrhea, No Constipation, No Melena, No Hematochezia, No Other Genitourinary: No Dysuria, No Frequency, No Incontinence, No Hematuria, No Retention, No Other Musculoskeletal: No other, No neck pain, No shoulder pain, No arm pain, No back pain, No hand pain, No leg pain, No foot pain Skin: No Rash, No Lesions, No Jaundice, No Bruising, No Other Objective Vitals Vital Signs Date Time Temp Pulse Resp B/P (MAP) Pulse Ox O2 Delivery O2 Flow Rate FiO2 04/04/24 16:48 98.3 97 18 111/68 (82) 96 98.3 04/04/24 08:28 Nasal Cannula* 3 32 Intake/Output Intake and Output 04/04/24 07:00 Intake Total 1275 ml Output Total 1600 ml Balance -325 ml Intake Oral 1275 ml Output Urine Total 1600 ml # Bowel Movements 5 General Appearance: Alert, Cooperative HEENT: Atraumatic Cardiovascular: Regular rate, Normal S1, Normal S2 Abdomen: Normal bowel sounds, Soft Medications Current Medications Medications Dose Ordered Sig/Desire Route Start Time Stop Time Status Last Admin Dose Admin Acetaminophen 650 mg Q6HP PRN PO 03/30/24 22:45 Aspirin 81 mg DAILY PO 03/31/24 10:00 04/04/24 09:16 81 MG Oxybutynin Chloride 5 mg DAILY PO 03/31/24 10:00 04/04/24 09:15 5 MG Atorvastatin Calcium 20 mg HS PO 03/31/24 22:00 04/03/24 21:14 20 MG Ceftriaxone Sodium 50 ml @ 100 mls/hr DAILY@09 IV 03/31/24 09:00 04/04/24 09:15 100 MLS/HR Laboratory Results Laboratory Tests 04/02/24 05:25 04/03/24 04:52 Urinalysis Test 04/01/24 15:58 Urine Color Yellow (Yellow) Urine Clarity Clear (Clear) Urine pH 6.0 (5.0-9.0) Urine Specific [place] 1.021 (1.001-1.035) Urine Protein Negative (Negative) Urine Ketones Negative (Negative) Urine Blood Negative /uL (Negative) Urine Nitrite Negative (Negative) Urine Bilirubin Negative (Negative) Urine Urobilinogen Normal mg/dL (Negative) Urine Leukocyte Esterase 1+ /uL (Negative) Urine RBC 2 /hpf (0 - 4) Urine Microscopic WBC 12 /HPF (0-5) H Urine Squamous Epithelial Cells Few /hpf (<5) Urine Bacteria None seen /hpf (None Seen) Urine Mucus Few (None Seen) Urine Glucose Normal mg/dL (Normal) Microbiology Microbiology Date/Time Source Procedure Growth Status 04/01/24 15:58 Urine - [place] Urine Culture - Final Complete Assessment/Plan Assessment/Plan #1 severe hypokalemia: replace #2 htn #3 obesity #4 ?uti/ sepsis: check ua #5 encephalopathy ? metabolic: improving #6 acute resp failure advance care planning- full code- time spent 19 mins 04/04/2024 per PT, pt needs SNF request for SNF pt agreed Plan discussed with: Patient Date of Service: Apr 04, 2024 Billing Provider: RAMOS VILLANUEVA DO Common Visit Codes: [id number] INP/OBS CARE(HIGH) RAMOS VILLANUEVA DO Apr 04, 2024 19:06
[2024-04-05] VITALS (8 sets, daily range): BP systolic 96–118; BP diastolic 40–54; PULSE 51–71; RESP 16–18; TEMP 96.8–98.3; O2SAT 97–100
--- NOTE | 2024-04-05 14:37 | DVHPN2 ---
Reviewed: Care Plan, H&P, Labs, Medications, Previous Orders, Radiology Changes from previous H/P or p: No Changes General: Per HPI Eyes: No Pain, No Vision change, No Conjunctivae inflammation, No Eyelid inflammation, No Other, No Redness ENT: No Ear pain, No Ear discharge, No Nose pain, No Nose discharge, No Nose congestion, No Mouth pain, No Mouth swelling, No Throat pain, No Throat swelling, No Other Cardiovascular: No Chest Pain, No Palpitations, No Orthopnea, No Paroxysmal Noc. Dyspnea, No Edema, No Lt Headedness, No Other Respiratory: No Cough, No Dry, No Shortness of breath, No SOB with excertion, No Wheezing, No Hemoptysis, No Pleuritic Pain, No Sputum, No Other Gastrointestinal: No Nausea, No Vomiting, No Abdominal Pain, No Diarrhea, No Constipation, No Melena, No Hematochezia, No Other Genitourinary: No Dysuria, No Frequency, No Incontinence, No Hematuria, No Retention, No Other Musculoskeletal: No other, No neck pain, No shoulder pain, No arm pain, No back pain, No hand pain, No leg pain, No foot pain Skin: No Rash, No Lesions, No Jaundice, No Bruising, No Other Objective Vitals Vital Signs Date Time Temp Pulse Resp B/P (MAP) Pulse Ox O2 Delivery O2 Flow Rate FiO2 04/05/24 13:00 97.8 54 16 96/50 (65) 98 97.8 04/05/24 08:10 Nasal Cannula* 3 32 Intake/Output Intake and Output 04/05/24 07:00 Intake Total 900 ml Output Total 2350 ml Balance -1450 ml Intake Oral 900 ml Output Urine Total 2350 ml # Bowel Movements 3 General Appearance: Alert, Cooperative HEENT: Atraumatic Cardiovascular: Regular rate, Normal S1, Normal S2 Abdomen: Normal bowel sounds, Soft Medications Current Medications Medications Dose Ordered Sig/Desire Route Start Time Stop Time Status Last Admin Dose Admin Acetaminophen 650 mg Q6HP PRN PO 03/30/24 22:45 Aspirin 81 mg DAILY PO 03/31/24 10:00 04/05/24 09:18 81 MG Oxybutynin Chloride 5 mg DAILY PO 03/31/24 10:00 04/05/24 09:18 5 MG Atorvastatin Calcium 20 mg HS PO 03/31/24 22:00 04/04/24 21:15 20 MG Ceftriaxone Sodium 50 ml @ 100 mls/hr DAILY@09 IV 03/31/24 09:00 04/04/24 09:15 100 MLS/HR Laboratory Results Laboratory Tests 04/02/24 05:25 04/03/24 04:52 Urinalysis Test 04/01/24 15:58 Urine Color Yellow (Yellow) Urine Clarity Clear (Clear) Urine pH 6.0 (5.0-9.0) Urine Specific [place] 1.021 (1.001-1.035) Urine Protein Negative (Negative) Urine Ketones Negative (Negative) Urine Blood Negative /uL (Negative) Urine Nitrite Negative (Negative) Urine Bilirubin Negative (Negative) Urine Urobilinogen Normal mg/dL (Negative) Urine Leukocyte Esterase 1+ /uL (Negative) Urine RBC 2 /hpf (0 - 4) Urine Microscopic WBC 12 /HPF (0-5) H Urine Squamous Epithelial Cells Few /hpf (<5) Urine Bacteria None seen /hpf (None Seen) Urine Mucus Few (None Seen) Urine Glucose Normal mg/dL (Normal) Microbiology Microbiology Date/Time Source Procedure Growth Status 04/01/24 15:58 Urine - [place] Urine Culture - Final Complete Assessment/Plan Assessment/Plan #1 severe hypokalemia: replace #2 htn #3 obesity #4 ?uti/ sepsis: check ua #5 encephalopathy ? metabolic: improving #6 acute resp failure advance care planning- full code- time spent 19 mins 04/04/2024 per PT, pt needs SNF request for SNF pt agreed 04/05/2024: pt tested positive for covid-19 infection SNF pending pt cannot walk, very week, and last time she walked was >1 month ago Plan discussed with: Patient My Orders Orders - RAMOS VILLANUEVA DO Procedure Category Date Status Time * Men'S Garment Fitter CONS 04/04/24 Transmitted Consult Date of Service: Apr 05, 2024 Billing Provider: RAMOS VILLANUEVA DO Common Visit Codes: [id number] INP/OBS CARE(HIGH) RAMOS VILLANUEVA DO Apr 05, 2024 14:37
[2024-04-06 05:00] VITALS: BP 109/53; PULSE 53; RESP 17; TEMP 97.3; O2SAT 95
[2024-04-06 08:00] VITALS: PULSE 59
[2024-04-06 08:56] VITALS: BP 108/50; PULSE 50; RESP 17; TEMP 97.9; O2SAT 98
--- NOTE | 2024-04-06 12:35 | DVHPN2 ---
Progress Note Date Seen: Apr 06, 2024 Medical Necessity Reason Pt with a Central, PICC or Fol: No Subjective Patient reports: No new complaints Review of Systems: HEENT:Normal, CVS:Normal, RESPIRATORY:Normal, GI:Normal, :Normal, MSK:Normal, NEURO:Normal Objective vital signs Vital Sign Date Time Temp Pulse Resp B/P (MAP) Pulse Ox O2 Delivery O2 Flow Rate FiO2 04/06/24 08:56 97.9 50 17 108/50 (69) 98 97.9 04/06/24 08:05 Nasal Cannula* 3 32 Total Intake and Output 04/05/24 04/05/24 04/06/24 15:00 23:00 07:00 Intake Total 780 ml 1210 ml 200 ml Output Total 275 ml 240 ml Balance 780 ml 935 ml -40 ml medications Current Medications Medications Dose Ordered Sig/Desire Route Start Time Stop Time Status Last Admin Dose Admin Acetaminophen 650 mg Q6HP PRN PO 03/30/24 22:45 Aspirin 81 mg DAILY PO 03/31/24 10:00 04/06/24 09:42 81 MG Oxybutynin Chloride 5 mg DAILY PO 03/31/24 10:00 04/06/24 09:40 5 MG Atorvastatin Calcium 20 mg HS PO 03/31/24 22:00 04/05/24 21:21 20 MG Ceftriaxone Sodium 50 ml @ 100 mls/hr DAILY@09 IV 03/31/24 09:00 04/06/24 09:38 100 MLS/HR Examination: GENERAL:Normal, HEENT:Normal, NECK:Normal, LUNGS:Normal, CVS:Normal, ABDOMEN:Normal, MSK:Normal, SKIN:Normal, NEURO:Normal, :Normal laboratory and microbiology Laboratory Tests 04/03/24 04:52 04/02/24 05:25 Test 04/03/24 04:52 Range/Units Serum Glucose 91 74-106 mg/dL Microbiology Date/Time Source Procedure Growth Status 04/01/24 15:58 Urine - [place] Urine Culture - Final Complete Problem List/Assessment/Plan Problem List/Assessment/Plan #1 severe hypokalemia: resolved #2 htn #3 obesity #4 ?uti/ sepsis: check ua #5 encephalopathy ? metabolic: improving #6 acute resp failure advance care planning- full code- time spent 19 mins dc planning to board and care today Plan discussed with: Patient My Orders My Orders Orders - MARGARETH RODRIGUEZ MD Procedure Category Date Status Time Discharge DISCHARGE 04/06/24 Transmitted 12:29 Discontinue [place] 04/06/24 Transmitted Catheter 12:29 * Corporate Banking Officer CONS 04/06/24 Transmitted Consult Discontinue Tele EVIE 04/06/24 Transmitted 12:29 Transfer Orders XFER 04/06/24 Transmitted 12:29 Date of Service: Apr 06, 2024 Billing Provider: MARGARETH RODRIGUEZ MD Common Visit Codes: [id number] INP/OBS CARE(HIGH) Secondary Visit Codes: [id number] CARE PLAN 30 MINUTES MARGARETH RODRIGUEZ MD Apr 06, 2024 12:35
[2024-04-06 13:00] VITALS: BP 121/60; PULSE 59; RESP 18; TEMP 97.4; O2SAT 98
[2024-04-06 15:13] VITALS: BP 121/60; PULSE 59; RESP 18; TEMP 97.4; O2SAT 98
== END 2024-04-06 18:02 | disposition home health service (06) | DRG 640 ==
LOC: ER 17:32 → EDBD 17:32 → TELE 22:42 → OVERFLOW 03-31 16:14 → WEST WING 03-31 22:47 → OVERFLOW 04-01 13:26 → TELE-WESTW 04-01 13:43 → WEST WING 04-02 16:00 → TELE-WESTW 04-02 16:02
PROVIDERS: ADMIT Internal Medicine; ATTEND Internal Medicine
DX: E87.6 Hypokalemia (principal); G93.41 Metabolic encephalopathy; J96.00 Acute respiratory failure, unspecified whether with hypoxia or hypercapnia; U07.1 COVID-19; I21.A1 Myocardial infarction type 2; N39.0 Urinary tract infection, site not specified; R32 Unspecified urinary incontinence; E66.9 Obesity, unspecified; E78.5 Hyperlipidemia, unspecified; I10 Essential (primary) hypertension; Z90.710 Acquired absence of both cervix and uterus; Z87.440 Personal history of urinary (tract) infections; Z68.33 Body mass index [BMI] 33.0-33.9, adult
CPT/HCPCS: 36415; 70450; 71045; 80048; 80053; 80061; 80307; 81001; 82140; 83036; 83735; 84132; 84484; 85025; 87086; 93005; 93306; 97110; 97163; 97530; G0378; J2003; J3480

== ENCOUNTER 2024-12-31 14:00 | Emergency (ER) | payer OTHER ==
[~2024-12-31] VITALS: Ht 165.1 cm; Wt 77.1 kg
[~2024-12-31 14:00] MED LIST: ATOR40TA52 PO; CEPH250C PO; FURO40TA4 PO; HYDR25TA4 PO; HYDR50TA47 PO; OXYB5TAB14 PO
[2024-12-31 14:05] VITALS: BP 123/54; PULSE 95; RESP 18; TEMP 97.6; O2SAT 96
--- NOTE | 2024-12-31 14:55 | ED.PDOC ---
Naveen. trauma (HPI) HPI Comments 89 y/o F, brought in by caregiver, presents to the ED for CC of s/p fall injury. Caregiver reports, patient had a fall while getting out of bed yesterday (12/30/24) landing on her right side, hitting her right jew and right arm. She had no loss of consciousness about time and does not take any anticoagulation. Per caregiver, patient was seen at [facility] yesterday (12/30/24) however, was referred to the ED d/t being unable to do a CT scan. Following injury, patient has noticeable bruising to her right upper arm and right jew. Her only complaint at this time is headache and right arm pain. Caregiver denies nausea, vomiting, weakness, numbness, frequent falls, dizziness, or vision changes. No other symptoms or modifying factors are present at this time. Chief Complaint: Fall Injury Time Seen by MD: 14:40 Primary Care Provider: JESSIE Stevens notes: Nurses Notes, Medications, Allergies Allergies: Coded Allergies: NO KNOWN ALLERGIES (Unverified , 12/11/18) Home Meds Reported Medications Cephalexin (KEFLEX CAPSULE) 250 Mg Cp, 500 MG PO TID for 10 Days, CAP 04/01/24 Hydrochlorothiazide (Hydrochlorothiazide) 25 Mg Tab, 25 MG PO DAILY, TAB 04/01/24 Hydralazine Hcl (Hydralazine Hcl) 50 Mg Tab, 50 MG PO TID, TAB 04/01/24 Atorvastatin Calcium (ATORVASTATIN CALCIUM) 40 Mg Tab, 40 MG PO DAILY, TAB 04/01/24 Oxybutynin Chloride (Oxybutynin Chloride) 5 Mg Tab, 5 MG PO TID, TAB 04/01/24 Furosemide (Furosemide) 40 Mg Tab, 40 MG PO DAILY, TAB 04/01/24 Information Source: Patient Mode of Arrival: Ambulatory Severity: Moderate Timing: Days Duration: Since onset Prehospital treatment: None Location: (R) Arm, Head Location of laceration: None Mechanism: Fall Associated signs and symtoms: None Past Medical History PAST MEDICAL HISTORY: High Lipids, HTN, UTI'S Surgical History: Hysterectomy, Tonsillectomy PLANT OPERATIONS MANAGER 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: No Pertinent PLANT OPERATIONS MANAGER History Family History Family History: Family hx of heart bryon Social History Smoker: Non-Smoker Alcohol: Denies ETOH Use Drugs: Denies Drug Use Lives In: Home Constitutional: denies: chills, diaphoresis, fatigue, fever, malaise, sweats, weakness, others EENTM: denies: blurred vision, double vision, ear bleeding, ear discharge, ear drainage, ear pain, ear ringing, eye pain, eye redness, hearing loss, mouth pain, mouth swelling, nasal discharge, nose bleeding, nose congestion, nose pain, photophobia, tearing, throat pain, throat swelling, voice changes, others Respiratory: denies: cough, hemoptysis, orthopnea, SOB at rest, shortness of breath, SOB with excertion, stridor, wheezing, others Cardiovascular: denies: chest pain, dizzy spells, diaphoresis, Dyspnea on exertion, edema, irregular heart beat, left arm pain, lightheadedness, palpitations, PND, syncope, others Gastrointestinal: denies: abdomen distended, abdominal pain, blood streaked bowels, constipated, diarrhea, dysphagia, difficulty swallowing, hematemesis, melena, nausea, poor appetite, poor fluid intake, rectal bleeding, rectal pain, vomiting, others Genitourinary: denies: abnormal vagina bleeding, burning, dyspareunia, dysuria, flank pain, frequency, hematuria, incontinence, pain, , vagina discharge, urgency, others Neurological: reports: headache; denies: dizziness, fainting, left sided numbness, left sided weakness, numbness, paresthesia, pre-existing deficit, right sided numbness, right sided weakness, seizure, speech problems, tingling, tremors, weakness, others Musculoskeletal: reports: joint swelling, muscle pain; denies: back pain, gout, joint pain, muscle stiffness, neck pain, others Integumetry: denies: bruises, change in color, change in hair/nails, dryness, laceration, lesions, lumps, rash, wounds, others Allergic/Immunocompromised: denies: Difficulty Healing, Frequent Infections, Hives, Itching, others Hematologic/Lymphatic: denies: anemia, blood clots, easy bleeding, easy bruising, swollen glands, others Endocrine: denies: excessive hunger, excessive sweating, excessive thirst, excessive urination, flushing, intolerance to cold, intolerance to heat, unexplained weight gain, unexplained weight loss, others Psychiatric: denies: anxiety, bipolar disorder, depression, hopeless, panic disorder, schizophrenia, sleepless, suicidal, others All Other Systems: Reviewed and Negative Physical Exam General Appearance: No Apparent Distress, Normal HEENT: Normal ENT Inspection, Pharynx Normal Neck: Full Range of Motion, Non-Tender, Normal, Normal Inspection Respiratory: Chest Non-Tender, Lungs Clear, No Accessory Muscle Use, No Respiratory Distress, Normal Breath Sounds Cardiovascular: No Edema, No Murmur, No Gallop, Normal Peripheral Pulses, Regular Rate/Rhythm Breast Exam: Deferred Gastrointestinal: No Organomegaly, Non Tender, No Pulsatile Mass, Normal Bowel Sounds, Soft Genitalia: Deferred Pelvic: Deferred Rectal: Deferred Extremities: No calf tenderness, Normal capillary refill, Normal inspection, Normal range of motion, Non-tender, No pedal edema, Other (Ecchymoses to right proximal humerus) Musculoskeletal : Location: Right Extremity Location: Arm Apperance: Other (RIGHT ARM AND RIGHT ADVENT CONTUSION) Neurologic: Alert, program architect II-XII nml as Tested, No Motor Deficits, Normal Affect, Normal Mood, No Sensory Deficits, Other (Ecchymosis right jew) Cerebellar Function: Normal Reflexes: Normal Skin: Dry, Normal Color, Warm Lymphatic: No Adenopathy Was a procedure done? Was a procedure done?: No Differential Diagnosis Multiple Trauma: Closed Head Injury, Fractures, Cerebral Contusion, Spine Injury, Contusion Neck Injury: Cervical Sprain, Cervical Fracture X-Ray, Labs, Meds, VS Vital Signs Date Time Temp Pulse Resp B/P (MAP) Pulse Ox O2 Delivery O2 Flow Rate FiO2 12/31/24 14:05 97.6 95 18 123/54 96 97.6 X-Ray, Labs, Meds, VS Comment Patient presenting with fall witnessed by caregiver yesterday, now with ecchymosis of right humerus and right jew. Considered blood work (including CBC/CMP/Mag) due to risk of disseminated infection/possibility of anemia/concern for electrolyte abnormality, but no blood work performed due to patient or guardian declined. CT head to evaluate for intracranial hemorrhage, large mass, acute infarct, fracture Right humerus x-ray to evaluate for fracture or dislocation Declining analgesia at this time re-evaluate Social determinant surveillance affecting care: Social determinants of health that will affect the patient's care: Poor health literacy (additional time provided an explanation) Poor access to outpatient care/followup (provided outpatient resources) Time of 1ST Reevaluation: 15:10 Reevaluation 1ST: Unchanged Patient Education/Counseling: Diagnosis, Treatment Family Education/Counseling: Diagnosis, Treatment Departure 1 Departure Time of Disposition: 16:39 (Imaging obtained which showed no evidence of traumatic injury, however patient eloped prior to receiving results of CTs and x-ray. Patient called multiple times with no response. 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 Electronically submitted by Vika Acosta ([email or web address]). MONICA HEATH MD Dec 31, 2024 14:55
--- NOTE | 2024-12-31 15:31 | DVH ---
CLINICAL INDICATION: fall TECHNIQUE: 3 radiographic views of the right humerus were obtained. Comparison: None FINDINGS/IMPRESSION: Bony structures of the right humerus appear normal There are no fractures or dislocations. No abnormal soft tissue calcifications.
--- NOTE | 2024-12-31 15:52 | DVH ---
COMPUTERIZED TOMOGRAPHY OF THE HEAD WITHOUT CONTRAST REASON FOR STUDY: fall COMPARISON: CT HEAD WITHOUT CONTRAST on DOS: 04/01/24 TECHNIQUE: Helical tomographic scans were obtained through the brain. 2-D coronal and sagittal reformatted images are provided. Radiation optimization: All CT scans at this facility use at least one of these dose optimization techniques: Automated exposure control mA and/or kV adjustment per patient size (includes targeted exams where dose is matched to clinical indication) or iterative reconstruction. RADIATION DOSE: CTDI: 55 mGy DLP: 1085 mGy-cm FINDINGS: No suspicious intracranial hyperdensity to suggest acute blood. 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 There is no mass effect nor midline shift. There is moderate generalized volume loss with compensatory enlargement of the CSF spaces. There is no hydrocephalus. The suprasellar cistern is intact. There are scattered periventricular and deep white matter hypodensities that are most consistent with chronic microangiopathic changes. The calvarium is intact. The visualized mastoid air cells and paranasal sinuses are clear. The patient is status post bilateral lens surgeries. IMPRESSION: No acute intracranial abnormality. Moderate generalized volume loss with chronic small vessel ischemic change.
--- NOTE | 2024-12-31 16:02 | DVH ---
Indication: fall Technique: CT axial images of the cervical spine are obtained without contrast. Coronal and sagittal reformats were obtained. Radiation Dose Information: CTDI volume is 24.3 mGy. Dose-length product is 686 mGy*cm Comparison: None FINDINGS: The cervical vertebral body heights are maintained. Reversal of normal cervical spine curvature. 3 mm anterolisthesis C4 upon C5. There is severe multilevel disc space narrowing. No prevertebral edema. Facet articulations demonstrate moderate to severe facet hypertrophic changes . The atlantooccipital, atlantoaxial articulations are intact. Moderate to severe multilevel neural foraminal stenosis. IMPRESSION: Severe cervical degenerative disc disease.
== END 2024-12-31 16:30 | disposition left against medical advice (07) ==
LOC: ER 14:00
DX: S09.8XXA Other specified injuries of head, initial encounter (principal); M79.601 Pain in right arm; E78.5 Hyperlipidemia, unspecified; I10 Essential (primary) hypertension; Z79.899 Other long term (current) drug therapy; Z90.710 Acquired absence of both cervix and uterus; Z87.440 Personal history of urinary (tract) infections; W17.89XA Other fall from one level to another, initial encounter; Y93.89 Activity, other specified; Y92.89 Other specified places as the place of occurrence of the external cause; Y99.8 Other external cause status
CPT/HCPCS: 70450; 72125; 73060

== ENCOUNTER 2025-01-23 15:40 | Inpatient (IN) | payer OTHER ==
[~2025-01-23] VITALS: Ht 160 cm; Wt 69.9 kg
--- NOTE | 2025-01-23 17:24 | ECG ---
[facility] Test Date: 2025-01-23 Test Time: 15:53:41 Pat Name: LESVIA MARTÍNEZ Department: Room: 0221T Gender: F Adult Probation Officer: IRENE : 1935 Requested By: EMERGENCY EMERGENCY Order Number: [id number] Reading MD: Reynaldo Cali Measurements Intervals [place] Rate: 132 P: -53 [place]: 92 QRS: -75 QRSD: 109 T: 58 QT: 357 QTc: 529 Interpretive Statements Sinus or ectopic atrial tachycardia Left anterior fascicular block Left ventricular hypertrophy Anterior Q waves, possibly due to LVH ST elevation, consider inferior injury Prolonged QT interval Baseline wander in lead(s) I,II,aVR,aVF,V3 Electronically Signed On 01-28-2025 19:09:32 PST by Reynaldo Cali Please click the below link to view image of tracing.
[2025-01-23 19:11] LABS: Hematocrit 38.9 % (36.0-46.0); Hemoglobin 13.4 g/dL (12.2-16.2); Mean Corpuscular Hemoglobin 29.4 pg (28.0-32.0); Mean Corpuscular Volume 85.5 fL (80.0-100.0); Nucleated Red Blood Cells % 0.0 %
--- NOTE | 2025-01-23 19:11 | ED.PDOC ---
History of Present Illness HPI Comments 89 y/o F presents with relative for abnormal labs. Patient endorses on being referred to ED from [facility] urgent care after lab work showed abnormally low K+ level of 2.9. She states on being seen at said facility for 1x week history of diarrhea. Denies any further acute symptoms. Chief Complaint: Shortness of Breath Time Seen by MD: 19:00 Primary Care Provider: JESSIE Stevens Notes: Nurses Notes, Medications, Allergies Allergies: Coded Allergies: NO KNOWN ALLERGIES (Unverified , 12/11/18) Home Meds Reported Medications Cephalexin (KEFLEX CAPSULE) 250 Mg Cp, 500 MG PO TID for 10 Days, CAP 04/01/24 Hydrochlorothiazide (Hydrochlorothiazide) 25 Mg Tab, 25 MG PO DAILY, TAB 04/01/24 Hydralazine Hcl (Hydralazine Hcl) 50 Mg Tab, 50 MG PO TID, TAB 04/01/24 Atorvastatin Calcium (ATORVASTATIN CALCIUM) 40 Mg Tab, 40 MG PO DAILY, TAB 04/01/24 Oxybutynin Chloride (Oxybutynin Chloride) 5 Mg Tab, 5 MG PO TID, TAB 04/01/24 Furosemide (Furosemide) 40 Mg Tab, 40 MG PO DAILY, TAB 04/01/24 Information Source: Patient Mode of Arrival: Wheelchair Severity: Moderate Timing: Hours Duration: Since onset Prehospital treatment: None Past Medical History PAST MEDICAL HISTORY: High Lipids, HTN, UTI'S Surgical History: Hysterectomy, Tonsillectomy TELEVISION REPAIRER History: No Pertinent TELEVISION REPAIRER History Family History Family History: Family hx of heart bryon Social History Smoker: Non-Smoker Alcohol: Denies ETOH Use Drugs: Denies Drug Use Lives In: Home All Other Systems: Reviewed and Negative (Comprehensive review of systems are negative unless stated in HPI) Physical Exam General Appearance: No Apparent Distress, Normal HEENT: Normal ENT Inspection, Pharynx Normal, TMs Normal Neck: Full Range of Motion, Non-Tender, Normal, Normal Inspection Respiratory: Chest Non-Tender, Lungs Clear, No Accessory Muscle Use, No Respiratory Distress, Normal Breath Sounds Cardiovascular: No Edema, No JVD, No Murmur, No Gallop, Normal Peripheral Pulses, Regular Rate/Rhythm Breast Exam: Deferred Gastrointestinal: No Organomegaly, Non Tender, No Pulsatile Mass, Normal Bowel Sounds, Soft Genitalia: Deferred Pelvic: Deferred Rectal: Deferred Extremities: No calf tenderness, Normal capillary refill, Normal inspection, Normal range of motion, Non-tender, No pedal edema Musculoskeletal : Apperance: Normal Neurologic: Alert, corn grinder II-XII nml as Tested, No Motor Deficits, Normal Affect, Normal Mood, No Sensory Deficits Cerebellar Function: Normal Reflexes: Normal Skin: Dry, Normal Color, Warm Lymphatic: No Adenopathy Was a procedure done? Was a procedure done?: No EKG EKG : Pulse Rate (adult): 132 [place]: Normal Cardiac Rhythm: ST Block: None Hypertrophy: None ST: Normal Differential Dx Considerations may include: electrolyte abnormality, dehydration, gastritis, among others X-Ray, Labs, Meds, VS Vital Signs Date Time Temp Pulse Resp B/P (MAP) Pulse Ox O2 Delivery O2 Flow Rate FiO2 01/23/25 19:11 132 01/23/25 15:53 132 01/23/25 15:43 97.8 125 18 110/83 95 97.8 Lab Test 01/23/25 19:40 01/23/25 18:54 Range/Units Troponin I High Sensitivity 32 38 *H </=34 ng/L White Blood Count 10.4 4.4-10.8 10^3/uL Red Blood Count 4.55 4.0-5.20 10^6/uL Hemoglobin 13.4 12.2-16.2 g/dL Hematocrit 38.9 36.0-46.0 % Mean Corpuscular Volume 85.5 80.0-100.0 fL Mean Corpuscular Hemoglobin 29.4 28.0-32.0 pg Mean Corpuscular Hemoglobin Concent 34.4 32.0-36.0 g/dL Red Cell Distribution Width 15.4 H 11.8-14.3 % Platelet Count 272 140-450 10^3/uL Mean Platelet Volume 8.5 6.9-10.8 fL Neutrophils (%) (Auto) 77.5 37.0-80.0 % Lymphocytes (%) (Auto) 14.0 10.0-50.0 % Monocytes (%) (Auto) 6.5 0.0-12.0 % Eosinophils (%) (Auto) 1.3 0.0-7.0 % Basophils (%) (Auto) 0.7 0.0-2.0 % Neutrophils # (Auto) 8.1 1.6-8.6 10 ^3/uL Lymphocytes # (Auto) 1.5 0.4-5.4 10 ^3/uL Monocytes # (Auto) 0.7 0-1.3 10 ^3/uL Eosinophils # (Auto) 0.1 0-0.8 10 ^3/uL Basophils # (Auto) 0.1 0-0.2 10 ^3/uL Nucleated Red Blood Cells 0.0 % Sodium Level 139 136-145 mmol/L Potassium Level 2.9 L 3.5-5.1 mmol/L Chloride Level 99 98-107 mmol/L Carbon Dioxide Level 30 20-31 mmol/L Anion Gap 10 5-15 Blood Urea Nitrogen 15 9-23 mg/dL Creatinine 0.72 0.550-1.02 mg/dL Glomerular Filtration Rate Calc 81 >90 mL/min BUN/Creatinine Ratio 20.8 H 10.0-20.0 Serum Glucose 120 H 74-106 mg/dL Calcium Level 9.5 8.7-10.4 mg/dL Time of 1ST Reevaluation: 19:30 Reevaluation 1ST: Unchanged Patient Education/Counseling: Diagnosis, Treatment Family Education/Counseling: Diagnosis, Treatment SEPSIS Sepsis Screen Date sepsis recognized/suspect: Jan 23, 2025 Time Sepsis recognized/suspect: 1544 Recent Procedure: No On Antibiotic Therapy: No Respiratory Rate >20: No Heart Rate >90: Yes Temp<36 C (96.8 F) or >38.3 C: No SBP <90 or MAP <65 mmHG: No New Acute Mental Status Change: No Is the patient on CPAP, BIPAP,: No Physician Orders Urinalysis (01/23/25 18:46) Chest Portable (01/23/25 18:46) Electrocardigram (01/23/25 18:46) Troponin-I Hs (01/23/25 21:46) Electrocardigram (01/23/25 19:46) Electrocardigram (01/23/25 21:46) Sodium Chloride 0.9% (01/23/25 20:00) Potassium Chl 20meq/100ml (01/23/25 20:00) Vital Signs Date Time Temp Pulse Resp B/P (MAP) Pulse Ox O2 Delivery O2 Flow Rate FiO2 01/23/25 19:11 132 01/23/25 15:53 132 01/23/25 15:43 97.8 125 18 110/83 95 97.8 Laboratory Tests Test 01/23/25 18:54 White Blood Count 10.4 10^3/uL (4.4-10.8) Departure 1 Departure Time of Disposition: 20:08 (Patient presents with low potassium and worsening shortness of breath. Patient found an elevated troponin. EKGs nonischemic. We will admit patient for further workup and expert consultation) Impression: Primary Impression: Hypokalemia Additional Impressions: Elevated troponin Shortness of breath Tachycardia Disposition: 09 ADMITTED INPATIENT Admit to: Tele Condition: Guarded Critical Care Note Critical Care Time?: No Stability Stability form required: No Heart Score Heart Score: Heart Score Response (Comments) Value History N/A 0 EKG N/A 0 Age N/A 0 Risk Factors N/A 0 Troponin N/A 0 Total 0 I personally scribed for ALIZA MUJICA MD ([email or web address]) on 01/23/25 at 19:11. Electronically submitted by Juan Clemons ([email or web address]). ALIZA MUJICA MD Jan 23, 2025 19:11
[2025-01-23 19:20] LABS: Chloride 99 mmol/L (98-107); Sodium 139 mmol/L (136-145)
[2025-01-23 19:21] LABS: Anion Gap 10 (5-15); Carbon Dioxide 30 mmol/L (20-31)
[2025-01-23 19:22] LABS: Calcium 9.5 mg/dL (8.7-10.4)
[2025-01-23 19:26] LABS: BUN/Creatinine Ratio 20.8 (10.0-20.0); Blood Urea Nitrogen 15 mg/dL (9-23)
[2025-01-23 19:32] LABS: Glucose 120 mg/dL (74-106); Potassium 2.9 mmol/L (3.5-5.1)
--- NOTE | 2025-01-23 20:21 | DVH ---
CHEST RADIOGRAPH Indication: tachy Technique: Single frontal view of the chest was obtained Comparison: XY CHEST XRAY 1 VIEW on DOS: 03/30/24 FINDINGS: Lines and Tubes: Right internal jugular catheter in place with the tip in the superior vena cava above the right atrium. Small radiopaque foreign body over the right diaphragm. May be in patient's clothing. Correlate clinically. Lungs: Mildly poor prominent bronchovascular markings bilaterally. Pleura: No effusion. No pneumothorax. Cardiomediastinal contours: Unremarkable Bones: No acute osseous abnormality. IMPRESSION: 1. Mildly more prominent bronchovascular markings bilaterally. 2. Right internal jugular catheter in place with the tip in the superior vena cava. 3. 15 mm radiopaque finding over the right mid diaphragm. Etiology uncertain correlate clinically.
[2025-01-24] VITALS (7 sets, daily range): BP systolic 103–127; BP diastolic 42–76; PULSE 65–114; RESP 14–21; TEMP 97.5–98; O2SAT 94–97
[2025-01-24] MEDS: POTASSIUM CHL 20MEQ/100ML 100 ML IV SCH ×2 (00:52→14:53)
[2025-01-24] MEDS: SODIUM CHLORIDE 0.9% 1,000 ML IV ONE (00:53)
[2025-01-24] MEDS: HALOPERIDOL LACTATE 5 MG/ML INJ VIAL IM ONE (01:55)
[2025-01-24] MEDS: diphenhydrAMINE HCL 50 MG/1 ML VL IM ONE (01:55)
[2025-01-24] MEDS: POTASSIUM CHL 20MEQ/100ML 100 ML IV ONE (04:12)
--- NOTE | 2025-01-24 06:58 | DVHHPRES ---
History of Present Illness Resident Creating Document: ALEKS OSUNA RESIDENT History of Present Illness 89-year-old female with past medical history of hypertension, hyperlipidemia, UTI's presented in the hospital for abnormal labs. Patient is currently confused and gives poor history but as per the ER physician note, she endorses on being referred to ED from [facility] urgent care after lab work showed abnormally low K+ level of 2.9. She states on being seen at [facility] for 1x week history of diarrhea. Denies any further acute symptoms. Patient is alert and oriented x1. Denied any chest pain, shortness of breath, palpitation, headache, dizziness Past medical history Hypertension Hyperlipidemia Multiple UTIs Past surgical history Unknown Family history History of heart disease Social history Unknown Medication history Atorvastatin Lasix Hydrochlorothiazide Hydralazine Oxybutynin Review of Systems Review of Systems As described in the HPI Allergies: Coded Allergies: NO KNOWN ALLERGIES (Unverified , 12/11/18) Exam Vital Signs Vital Signs Date Time Temp Pulse Resp B/P (MAP) Pulse Ox O2 Delivery O2 Flow Rate FiO2 01/24/25 05:06 94 18 129/60 (83) 94 01/24/25 00:43 Room Air* 0 21 01/24/25 00:42 97.9 97.9 Exam Examination General Appearance: Confused HEENT: EOMI Respiratory: Clear to auscultation, Normal air movement Cardiovascular: Regular rate, Normal S1, Normal S2 Abdominal: Normal bowel sounds Extremities: No cyanosis, No edema, Normal pulses, No tenderness/swelling Skin: No rashes, No breakdown Neuro: Confused Labs/Xrays Labs Test 01/23/25 21:36 01/23/25 18:54 Range/Units Troponin I High Sensitivity 31 </=34 ng/L White Blood Count 10.4 4.4-10.8 10^3/uL Red Blood Count 4.55 4.0-5.20 10^6/uL Hemoglobin 13.4 12.2-16.2 g/dL Hematocrit 38.9 36.0-46.0 % Mean Corpuscular Volume 85.5 80.0-100.0 fL Mean Corpuscular Hemoglobin 29.4 28.0-32.0 pg Mean Corpuscular Hemoglobin Concent 34.4 32.0-36.0 g/dL Red Cell Distribution Width 15.4 H 11.8-14.3 % Platelet Count 272 140-450 10^3/uL Mean Platelet Volume 8.5 6.9-10.8 fL Neutrophils (%) (Auto) 77.5 37.0-80.0 % Lymphocytes (%) (Auto) 14.0 10.0-50.0 % Monocytes (%) (Auto) 6.5 0.0-12.0 % Eosinophils (%) (Auto) 1.3 0.0-7.0 % Basophils (%) (Auto) 0.7 0.0-2.0 % Neutrophils # (Auto) 8.1 1.6-8.6 10 ^3/uL Lymphocytes # (Auto) 1.5 0.4-5.4 10 ^3/uL Monocytes # (Auto) 0.7 0-1.3 10 ^3/uL Eosinophils # (Auto) 0.1 0-0.8 10 ^3/uL Basophils # (Auto) 0.1 0-0.2 10 ^3/uL Nucleated Red Blood Cells 0.0 % Sodium Level 139 136-145 mmol/L Potassium Level 2.9 L 3.5-5.1 mmol/L Chloride Level 99 98-107 mmol/L Carbon Dioxide Level 30 20-31 mmol/L Anion Gap 10 5-15 Blood Urea Nitrogen 15 9-23 mg/dL Creatinine 0.72 0.550-1.02 mg/dL Glomerular Filtration Rate Calc 81 >90 mL/min BUN/Creatinine Ratio 20.8 H 10.0-20.0 Serum Glucose 120 H 74-106 mg/dL Calcium Level 9.5 8.7-10.4 mg/dL SEPSIS Sepsis Screen Date sepsis recognized/suspect: Jan 23, 2025 Time Sepsis recognized/suspect: 0043 Recent Procedure: No On Antibiotic Therapy: No Respiratory Rate >20: No Heart Rate >90: Yes Temp<36 C (96.8 F) or >38.3 C: No SBP <90 or MAP <65 mmHG: No New Acute Mental Status Change: No Is the patient on CPAP, BIPAP,: No Physician Orders Electrocardigram (01/24/25 06:54) Electrocardigram (01/24/25 07:54) Electrocardigram (01/24/25 09:54) Admit (01/24/25 06:55) Oxygen By Nasal Cannula (01/24/25 06:55) Stat Ekg For Chest Pain (01/24/25 06:55) Notify Md Of Changes From Base (01/24/25 06:55) 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 (01/24/25 06:55) Emergency Dysrhythmia Protocol (01/24/25 06:55) Rhythm Strips Once Every Shift (01/24/25 06:55) Complete Blood Count (01/24/25 06:55) Comprehensive Metabolic Panel (01/24/25 06:55) Magnesium (01/24/25 06:55) Chest Xray 1 View (01/24/25 06:55) Urinalysis (01/24/25 06:55) Vital Signs Date Time Temp Pulse Resp B/P (MAP) Pulse Ox O2 Delivery O2 Flow Rate FiO2 01/24/25 05:06 94 18 129/60 (83) 94 01/24/25 03:00 110 20 122/76 (91) 96 01/24/25 00:43 114 15 96 Room Air* 0 21 01/24/25 00:42 97.9 114 12 117/85 (96) 96 97.9 Medications Medications Dose Ordered Sig/Desire Route Start Time Stop Time Status Last Admin Dose Admin Diphenhydramine HCl 50 mg ONCE ONCE IM 01/24/25 02:00 01/24/25 02:01 DC 01/24/25 01:55 50 MG Haloperidol Lactate 10 mg ONCE ONCE IM 01/24/25 02:00 01/24/25 02:01 DC 01/24/25 01:55 10 MG Potassium Chloride 100 ml @ 50 mls/hr Q2H IV 01/23/25 20:00 01/23/25 23:59 DC 01/24/25 04:12 50 MLS/HR Sodium Chloride 1,000 ml @ 1,000 mls/hr Q1H ONCE IV 01/23/25 20:00 01/23/25 20:59 DC 01/24/25 00:53 1,000 MLS/HR Assessment/Plan Assessment/Plan Assessment/plan # metabolic encephalopathy ? UTI -head CT -TSH, B12, folate -urinalysis, pending -IV ceftriaxone considering frequent UTIs # hypokalemia -IV potassium -Monitor BMP -magnesium ordered # Hyperlipidemia Statins #Hypertension -resume home meds #DVT prophylaxis -Low dose Lovenox 40mg SC daily Code status. Patient is currently confused, full code as of now Case discussion with Dr. Gonzalez Plan discussed with: Patient, Other My Orders Orders - ALEKS OSUNA RESIDENT Procedure Category Date Status Time Electrocardigram EKG 01/24/25 Logged 06:54 Electrocardigram EKG 01/24/25 Logged 07:54 Electrocardigram EKG 01/24/25 Logged 09:54 Admit ADMIT 01/24/25 Transmitted 06:55 Oxygen By Nasal RT 01/24/25 Transmitted Cannula 06:55 Stat Ekg For Chest EVIE 01/24/25 Transmitted Pain 06:55 Notify Md Of Changes [facility] 01/24/25 Transmitted From Base 06:55 Piped Buttonhole Machine Operator For [facility] 01/24/25 Transmitted 24 Hours 06:55 Emergency Dysrhythmia [facility] 01/24/25 Transmitted Protocol 06:55 Rhythm Strips Once [facility] 01/24/25 Transmitted Every Shift 06:55 Complete Blood Count LAB 01/24/25 Transmitted 06:55 Comprehensive LAB 01/24/25 Transmitted Metabolic Panel 06:55 Magnesium LAB 01/24/25 Transmitted 06:55 Chest Xray 1 View XY 01/24/25 Transmitted 06:55 Urinalysis LAB 01/24/25 Transmitted 06:55 Visit Coding STANDARD RES Billing Provider: ANANTH GONZALEZ MD Date of Service if different f: Jan 24, 2025 Common Visit Codes: [id number] INP/OBS CARE (HIGH) Secondary Visit Codes: [id number] CARE PLAN 30 MINUTES ALEKS OSUNA RESIDENT Jan 24, 2025 06:58
[2025-01-24 07:23] LABS: Hematocrit 37.9 % (36.0-46.0); Hemoglobin 12.8 g/dL (12.2-16.2); Mean Corpuscular Hemoglobin 29.2 pg (28.0-32.0); Mean Corpuscular Volume 86.1 fL (80.0-100.0); Nucleated Red Blood Cells % 0.1 %
[2025-01-24 07:39] LABS: Alanine Aminotransferase 22 U/L (7-40); Albumin 4.3 g/dL (3.2-4.8); Anion Gap 10 (5-15); BUN/Creatinine Ratio 17.6 (10.0-20.0); Bilirubin, Total 0.9 mg/dL (0.2-1.0); Blood Urea Nitrogen 13 mg/dL (9-23); Calcium 9.4 mg/dL (8.7-10.4); Carbon Dioxide 30 mmol/L (20-31); Chloride 102 mmol/L (98-107); Glucose 104 mg/dL (74-106); Magnesium 2.1 mg/dL (1.6-2.6); Sodium 142 mmol/L (136-145); Total Protein 6.7 g/dL (5.7-8.2)
[2025-01-24 07:48] LABS: Alkaline Phosphatase 166 U/L (46-116); Potassium 3.0 mmol/L (3.5-5.1)
--- NOTE | 2025-01-24 08:10 | DVH ---
CHEST RADIOGRAPH Indication: Metabolic encephalopathy Technique: Single frontal view of the chest was obtained Comparison: XY CHEST PORTABLE on DOS: 01/23/25. FINDINGS: Lines and Tubes: None Lungs: No focal consolidation. Pleura: No effusion. No pneumothorax. Cardiomediastinal contours: Unremarkable Bones: No acute osseous abnormality. IMPRESSION: 1. No acute cardiopulmonary disease.
--- NOTE | 2025-01-24 11:40 | DVH ---
EXAM: CT HEAD WITHOUT CONTRAST INDICATION: ALOC TECHNIQUE: CT of the head without intravenous contrast. Coronal and sagittal reformatted images are submitted. Radiation Dose : 1. Head: CT Dose: CTDI volume is 54.84 mGy. Dose-length product is 969.3 mGy*cm The dose indicators for CT are the volume Computed Tomography (CT) Dose Index (CTDIvol) and the Dose Length Product (DLP), and are measured in units of mGy and mGy-cm, respectively. These indicators are not patient dose, but values generated from the CT scanner acquisition factors. The report includes radiation exposure data for exposures received during this examination. All CT scans at this medical facility are performed using dose modulation techniques as appropriate to a performed exam including the following: Automated exposure control was utilized; adjustment of the MA and/or KV according to patient size; and use of iterative reconstruction technique. COMPARISON: CT HEAD WITHOUT CONTRAST on DOS: 12/31/24 There is no evidence of acute intracranial hemorrhage, extra-axial collection, mass effect, midline shift, herniation or hydrocephalus. There are periventricular and subcortical hypodensities, nonspecific, but likely reflecting sequelae of chronic microvascular ischemic changes. The ventricles, sulci and cisterns are age appropriate. The forbes-white differentiation is intact. The visualized paranasal sinuses and mastoid air cells are clear. No depressed calvarial fracture. The surrounding soft tissues are unremarkable. IMPRESSION: 1. No acute intracranial abnormality.
[2025-01-24 16:09] LABS: INR 1.03 (0.9-1.15); Partial Thromboplastin Time 33.4 SEC (24.5-34.5); Prothrombin Time 10.9 sec (9.3-11.8)
[2025-01-24] MEDS: ATORVASTATIN 20 MG TAB PO SCH (22:24)
[2025-01-25] VITALS (7 sets, daily range): BP systolic 109–121; BP diastolic 61–79; PULSE 52–87; RESP 16–18; TEMP 97.3–98.1; O2SAT 94–98
[2025-01-25 06:29] LABS: Hematocrit 35.7 % (36.0-46.0); Hemoglobin 12.1 g/dL (12.2-16.2); Mean Corpuscular Hemoglobin 29.0 pg (28.0-32.0); Mean Corpuscular Volume 85.4 fL (80.0-100.0); Nucleated Red Blood Cells % 0.0 %
[2025-01-25 06:32] LABS: Chloride 104 mmol/L (98-107); Potassium 3.6 mmol/L (3.5-5.1); Sodium 143 mmol/L (136-145)
[2025-01-25 06:33] LABS: Anion Gap 11 (5-15); Calcium 9.1 mg/dL (8.7-10.4); Carbon Dioxide 28 mmol/L (20-31)
[2025-01-25 06:38] LABS: BUN/Creatinine Ratio 22.4 (10.0-20.0); Blood Urea Nitrogen 13 mg/dL (9-23); Glucose 91 mg/dL (74-106)
[2025-01-25 06:39] LABS: Magnesium 2.0 mg/dL (1.6-2.6)
--- NOTE | 2025-01-25 06:56 | ECG ---
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
[2025-01-25] MEDS: ENOXAPARIN SOD 40 MG/0.4 ML SYRINGE SC ONE (10:05)
[2025-01-25] MEDS: ENOXAPARIN SOD 40 MG/0.4 ML SYRINGE SC SCH (10:11)
--- NOTE | 2025-01-25 15:11 | DVHPN2 ---
Subjective still confused Reviewed: H&P Changes from previous H/P or p: No Changes Objective Vitals Vital Signs Date Time Temp Pulse Resp B/P (MAP) Pulse Ox O2 Delivery O2 Flow Rate FiO2 01/25/25 14:15 116/71 01/25/25 12:33 97.8 81 16 96 97.8 01/24/25 20:00 Room Air* 0 21 Intake/Output Intake and Output 01/25/25 05:00 Intake Total 400 ml Balance 400 ml Intake Oral 200 ml IV Total 200 ml # Voids 1 General Appearance: Alert Lungs: Clear to auscultation Cardiovascular: Regular rate, Normal S1, Normal S2 Abdomen: Normal bowel sounds Medications Current Medications Medications Dose Ordered Sig/Edsire Route Start Time Stop Time Status Last Admin Dose Admin Ceftriaxone Sodium 50 ml @ 100 mls/hr DAILY@09 IV 01/25/25 09:00 01/25/25 10:11 100 MLS/HR Atorvastatin Calcium 40 mg HS PO 01/24/25 22:00 01/24/25 22:24 40 MG Hydralazine HCl 50 mg TID PO 01/24/25 22:00 01/25/25 14:15 50 MG Enoxaparin Sodium 40 mg DAILY SC 01/25/25 10:00 01/25/25 10:11 40 MG Laboratory Results Laboratory Tests 01/25/25 05:52 Chemistry Test 01/24/25 15:26 01/25/25 05:52 Magnesium Level 2.1 mg/dL (1.6-2.6) 2.0 mg/dL (1.6-2.6) Calcium Level 9.1 mg/dL (8.7-10.4) Coagulation Test 01/24/25 15:26 Prothrombin Time 10.9 sec (9.3-11.8) Prothrombin Time INR 1.03 (0.9-1.15) Activated Partial Thromboplast Time 33.4 SEC (24.5-34.5) Microbiology Microbiology Date/Time Source Procedure Growth Status 01/25/25 06:00 Nose MRSA Screen - Final Complete Assessment/Plan Assessment/Plan # metabolic encephalopathy ? UTI -head CT negative Most likely encephalopathy metabolic due to hypokalemia Urine cx pending # hypokalemia resolved # Hyperlipidemia Statins #Hypertension -resume home meds #DVT prophylaxis -Low dose Lovenox 40mg SC daily Stable to transfer to [place] Plan discussed with: Patient My Orders Orders - PIOTR TIDEWLL MD Procedure Category Date Status Time * Oyster Floater CONS 01/25/25 Transmitted Consult Discharge DISCHARGE 01/25/25 Transmitted 13:59 Date of Service: Jan 25, 2025 Billing Provider: PIOTR TIDWELL MD Common Visit Codes: [id number] INP/OBS CARE(HIGH) PIOTR TIDWELL MD Jan 25, 2025 15:11
[2025-01-25 15:54] LABS: Urine Protein, UAD TRACE (Negative)
== END 2025-01-25 21:44 | disposition short-term general hospital (02) | DRG 640 ==
LOC: ER 15:40 → OVERFLOW 01-24 06:55 → TELE-CENTR 01-24 16:03
PROVIDERS: ADMIT Hospitalist; ATTEND Hospitalist
DX: E87.6 Hypokalemia (principal); G93.41 Metabolic encephalopathy; N39.0 Urinary tract infection, site not specified; I10 Essential (primary) hypertension; E78.5 Hyperlipidemia, unspecified; Z90.710 Acquired absence of both cervix and uterus; Z82.49 Family history of ischemic heart disease and other diseases of the circulatory system; Z79.899 Other long term (current) drug therapy
CPT/HCPCS: 36415; 70450; 71045; 80048; 80053; 81001; 82607; 82746; 83735; 84443; 84484; 85025; 85610; 85730; 87081; 87086; 93005; 96360; 96372; G0378; J3480